=== PATIENT | female | born 1960 | race Caucasian/White ===

== ENCOUNTER 2020-11-28 13:19 | Emergency (ER) | payer OTHER ==
[2020-11-28 15:19] LABS: Absolute Lymphocytes (CBC) 2.5 K/uL (0.7-4.9); Basophils % 1.5 % (0-1.3); Hematocrit 38.9 % (36.0-45.0); Lymphocytes % 31.5 % (15.3-44.8); MPV 7.4 fL (7.6-11.3); RBC Red Blood Cell Count 4.64 M/uL (3.86-4.86)
[2020-11-28] MEDS ORDERED: ALBUTEROL 2.5 MG/3 ML NEB SOL ONE (15:28)
[2020-11-28] MEDS ORDERED: IPRATROPIUM BROM 0.5MG/2.5ML ONE (15:28)
[2020-11-28] MEDS ORDERED: METHYLPREDNISOLONE 125 MG INJ ONE (15:28)
[2020-11-28] MEDS ORDERED: MAGNESIUM SULFATE 1 gm IVPB 1 GM/100 ML BAG IV ONE (15:29)
[2020-11-28 15:36] LABS: BUN Blood Urea Nitrogen 12 mg/dL (7-18); Bicarbonate 27 mmol/L (21-32); Glucose Level 95 mg/dL (74-106); Potassium 3.7 mmol/L (3.5-5.1); Sodium Level 144 mmol/L (136-145)
--- NOTE | 2020-11-28 15:36 | RAD REPORT ---
EXAM DESCRIPTION: Arely Single View11/28/2020 3:26 pm CLINICAL HISTORY: sob COMPARISON: 2019 FINDINGS: The lungs appear clear of acute infiltrate. The heart is normal size IMPRESSION: No acute abnormalities displayed
--- NOTE | 2020-11-28 15:47 | ER ---
Nurse's Notes [facility] Name: Rosaura Cohen Age: 60 yrs Sex: Female : 1960 Arrival Date: 11/28/2020 Time: 13:28 Bed 26 Private MD: Diagnosis: Unspecified asthma with (acute) exacerbation Presentation: 11/28 13:40 Chief complaint: Patient states: Asthma exacerbation, shortness of breath x 1 month. jl7 Coronavirus screen: At this time, the client does not indicate any symptoms associated with coronavirus-19. Ebola Screen: No symptoms or risks identified at this time. Initial Sepsis Screen: Does the patient meet any 2 criteria? No. Patient's initial sepsis screen is negative. Does the patient have a suspected source of infection? No. Patient's initial sepsis screen is negative. Risk Assessment: Do you want to hurt yourself or someone else? Patient reports no desire to harm self or others. Onset of symptoms was October 2020. 13:40 Method Of Arrival: Ambulatory [facility] 13:40 Acuity: SLY 3 jl7 Triage Assessment: 13:42 General: Appears in no apparent distress. uncomfortable, Behavior is calm, cooperative, jl7 appropriate for age. Pain: Denies pain. Respiratory: Reports shortness of breath Onset: The symptoms/episode began/occurred gradually, the patient has mild shortness of breath. Historical: - Allergies: 13:42 PENICILLINS; jl7 - Home Meds: 13:42 Albuterol Inhl [Active]; levothyroxine 100 mcg cap [Active]; jl7 - PMHx: 13:42 Asthma; Hypothyroidism; jl7 - PSHx: 13:42 Total abdominal hysterectomy; jl7 - Immunization history:: Adult Immunizations up to date, Client reports receiving the 2nd dose of the Covid vaccine, Pfizer. - Social history:: Smoking status: Patient denies any tobacco usage or history of. - Family history:: not pertinent. - Code Status:: Full code. Screenin:09 Abuse screen: Denies threats or abuse. Nutritional screening: No deficits noted. kh1 Tuberculosis screening: No symptoms or risk factors identified. Fall Risk None identified. No fall in past 12 months (0 pts). No secondary diagnosis (0 pts). IV access (20 points). Gait- Normal/Bed Rest/Wheelchair (0 pts) Mental Status- Oriented to own ability (0 pts). Assessment: 14:08 General: Appears in no apparent distress. uncomfortable, Behavior is calm, cooperative, kh1 appropriate for age. Neuro: Level of Consciousness is awake, alert, obeys commands, Oriented to person, place, time, situation, Furniture Rental Consultant are equal bilaterally Moves all extremities. Gait is steady, Speech is normal. Respiratory: Airway is patent Respiratory effort is even, labored, Respiratory pattern is regular, Breath sounds with wheezes bilaterally. 14:09 Cardiovascular: Rhythm is sinus rhythm. kh1 15:45 Reassessment: Patient appears in no apparent distress at this time. No changes from [facility] previously documented assessment. Patient and/or family updated on plan of care and expected duration. Pain level reassessed. Patient is alert, oriented x 3, equal unlabored respirations, skin warm/dry/pink. Vital Signs: 13:40 BP 127 / 103; Pulse 92; Resp 19; Temp 96.8; Pulse Ox 96% ; Weight 83.01 kg; Height 5 7 ft. 5 in. (165.10 cm); Pain 0/10; 14:20 BP 106 / 61; Pulse 91 MON; Resp 20 S; Temp 98.2(TE); Pulse Ox 96% on R/A; kh1 15:46 BP 128 / 72; Pulse 79; Resp 18; Pulse Ox 100% on R/A; kh1 13:40 Body Mass Index 30.45 (83.01 kg, 165.10 cm) 7 ED Course: 13:28 Patient arrived in ED. ds1 13:38 Dinorah Hernandez [facility]C [facility] kb 13:38 Bryan Cross MD is Attending Physician. kb 13:42 Triage completed. jl7 13:42 Arm band placed on right wrist. jl7 14:07 Patt Lyons is Primary Nurse. kh1 14:09 Inserted saline lock: 20 gauge in right antecubital area, using aseptic technique. 1 Blood collected. 14:10 Patient has correct armband on for positive identification. Bed in low position. Call [facility] light in reach. Side rails up X 1. Pulse ox on. NIBP on. 15:18 Basic Metabolic Panel Sent. 1 15:19 CBC with Diff Sent. 1 15:26 Chest Single View XRAY In Process Unspecified. EDMS 15:58 No provider procedures requiring assistance completed. IV discontinued, intact, kh1 bleeding controlled, No redness/swelling at site. Pressure dressing applied. Administered Medications: 15:18 Drug: Magnesium Sulfate 1 grams Route: IVPB; Infused Over: 30 mins; Site: right kh1 antecubital; 15:18 Drug: SOLU-Medrol (methylPrednisoLONE) 125 mg Route: IVP; Site: right antecubital; kh1 15:19 Drug: DuoNeb (albuterol 2.5 mg, ipratropium 0.5 mg) (3:1) (2.5 mg - 0.5 mg) 3 ml Route: kh1 Nebulizer; Outcome: 15:46 Discharge ordered by . cr 15:58 Discharged to home ambulatory. kh1 15:58 Condition: improved 15:58 Discharge instructions given to patient, Instructed on discharge instructions, follow up and referral plans. medication usage, Demonstrated understanding of instructions, follow-up care, medications, Prescriptions given X 1. 16:15 Patient left the ED. kh1 Signatures: Dispatcher [employer] EDMS Dinorah Hernandez, BULLDOZER OPERATOR-C BULLDOZER OPERATOR-Betty Mon ds1 Lorena Fish RN RN Patt Cornejo kh1
--- NOTE | 2020-11-28 15:47 | EDPHYS ---
Physician Documentation [facility] Name: Rosaura Cohen Age: 60 yrs Sex: Female : 1960 Arrival Date: 11/28/2020 Time: 13:28 Bed 26 Private MD: ED Physician Bryan Cross HPI: 11/28 13:42 This 60 yrs old Female presents to ER via Ambulatory with complaints of kb Breathing Difficulty, Asthma Exacerbation. 13:42 The patient has shortness of breath at rest. Onset: The symptoms/episode began/occurred kb 1 month(s) ago. Duration: The symptoms are continuous. The patient's shortness of breath is aggravated by nothing, is alleviated by nothing. Associated signs and symptoms: Pertinent positives: non-productive cough, Pertinent negatives: chest pain, fever. Severity of symptoms: At their worst the symptoms were moderate in the emergency department the symptoms are unchanged. The patient has experienced similar episodes in the past. The patient has not recently seen a physician. Pt reports shortness of breath for a month. States it is getting worse and her albuterol doesn't seem to be helping anymore. Historical: - Allergies: 13:42 PENICILLINS; jl7 - Home Meds: 13:42 Albuterol Inhl [Active]; levothyroxine 100 mcg cap [Active]; jl7 - PMHx: 13:42 Asthma; Hypothyroidism; jl7 - PSHx: 13:42 Total abdominal hysterectomy; jl7 - Immunization history:: Adult Immunizations up to date, Client reports receiving the 2nd dose of the Covid vaccine, Pfizer. - Social history:: Smoking status: Patient denies any tobacco usage or history of. - Family history:: not pertinent. - Code Status:: Full code. ROS: 13:42 Constitutional: Negative for fever, chills, and weight loss. kb 13:42 Respiratory: Positive for cough, shortness of breath. 13:42 All other systems are negative. Exam: 13:42 Constitutional: This is a well developed, well nourished patient who is awake, alert, kb and in no acute distress. Head/Face: Normocephalic, atraumatic. ENT: Moist Mucous membranes Cardiovascular: Regular rate and rhythm with a normal S1 and S2. No gallops, murmurs, or rubs. No pulse deficits. Skin: Warm, dry with normal turgor. Normal color. MS/ Extremity: Pulses equal, no cyanosis. Neurovascular intact. Full, normal range of motion. Neuro: Awake and alert, GCS 15, oriented to person, place, time, and situation. Moves all extremities. Normal gait. Psych: Awake, alert, with orientation to person, place and time. Behavior, mood, and affect are within normal limits. 13:42 Respiratory: the patient does not display signs of respiratory distress, Respirations: normal, Breath sounds: wheezing: expiratory that is moderate, is heard diffusely. Vital Signs: 13:40 BP 127 / 103; Pulse 92; Resp 19; Temp 96.8; Pulse Ox 96% ; Weight 83.01 kg; Height 5 jl7 ft. 5 in. (165.10 cm); Pain 0/10; 14:20 BP 106 / 61; Pulse 91 MON; Resp 20 S; Temp 98.2(TE); Pulse Ox 96% on R/A; kh1 15:46 BP 128 / 72; Pulse 79; Resp 18; Pulse Ox 100% on R/A; kh1 13:40 Body Mass Index 30.45 (83.01 kg, 165.10 cm) jl7 MDM: 13:42 Patient medically screened. kb 13:44 Data reviewed: vital signs, nurses notes. Data interpreted: Pulse oximetry: on room air kb is 96 %. Interpretation: normal. 15:46 Counseling: I had a detailed discussion with the patient and/or guardian regarding: the kb historical points, exam findings, and any diagnostic results supporting the discharge/admit diagnosis, lab results, radiology results, the need for outpatient follow up, a family practitioner, to return to the emergency department if symptoms worsen or persist or if there are any questions or concerns that arise at home. 11/28 15:02 Order name: CBC with Diff; Complete Time: 15:26 kb 11/28 15:02 Order name: Basic Metabolic Panel; Complete Time: 15:36 kb 11/28 15:02 Order name: Chest Single View XRAY; Complete Time: 15:38 kb 11/28 15:02 Order name: IV Start; Complete Time: 15:19 kb Administered Medications: 15:18 Drug: Magnesium Sulfate 1 grams Route: IVPB; Infused Over: 30 mins; Site: right [facility] antecubital; 15:18 Drug: SOLU-Medrol (methylPrednisoLONE) 125 mg Route: IVP; Site: right antecubital; kh1 15:19 Drug: DuoNeb (albuterol 2.5 mg, ipratropium 0.5 mg) (3:1) (2.5 mg - 0.5 mg) 3 ml Route: kh1 Nebulizer; Disposition Summary: 11/28/20 15:46 Discharge Ordered Location: Home kb Condition: Stable kb Diagnosis - Unspecified asthma with (acute) exacerbation kb Followup: kb - With: Emergency Department - When: As needed - Reason: Worsening of condition Followup: kb - With: Private Physician - When: 2 - 3 days - Reason: Recheck today's complaints, Continuance of care, Re-evaluation by your physician Discharge Instructions: - Discharge Summary Sheet kb - Asthma, Adult, [id number] kb Forms: - Medication Reconciliation Form kb - Thank You Letter kb - Antibiotic Education kb - Prescription Opioid Use kb Prescriptions: - Prednisone 20 mg Oral Tablet - take 1 tablet by ORAL route once daily for 5 days; 5 tablet; Refills: 0, kb Product Selection Permitted Addendum: 11/30/2020 11:01 Co-signature as Attending Physician, Bryan Cross MD I agree with the assessment and c duckworth plan of care. Signatures: Dispatcher [employer] Dinorah Mike, KARIN-C SLOT TECHNICIAN-Bryan May MD MD cha Leal, Jahala, RN RN hope7 Eloy, Patt [facility]
[2020-11-28 16:31] VITALS: TEMP 98.2
[2020-11-28 16:32] VITALS: BP 128/72; O2SAT 100
== END 2020-11-28 16:15 | disposition home or self-care (01) ==
LOC: ER 13:19
DX: J45.901 Unspecified asthma with (acute) exacerbation (principal); E03.9 Hypothyroidism, unspecified; Z88.0 Allergy status to penicillin
CPT/HCPCS: 85025; 80048; 36415; 71045; 96375; 96374; 99285; J3475; J2930

== ENCOUNTER 2021-01-18 13:39 | Emergency (ER) | payer OTHER ==
--- OUTSIDE RECORDS SUMMARY | 2021-01-18 13:42 | XMS REPORT | Continuity of Care Document ---
:1960 Author Organization [facility] t Address [address] [place] [address] Care Team Providers Name Role Phone Unavailable Unavailable Unavailable Problems This patient has no known problems. Allergies, Adverse Reactions, Alerts Allergy Allergy Status Severity Reaction(s) Onset Inactive Treating Comm ents Source Name Type Date Date Clinician PCN Adverse Active rash [facility] Medications Ordered Filled Start Stop Current Ordering Indication Dosage Frequency Signature Comments Components Source Medication Medication Date Date Medication? Clinician (SIG) Name Name Levothyroxi Levothyroxi Yes Nery [address] [facility] ne Sodium ne Sodium [place] in the - morning on [facility] empty l stomach [facility]pat[facility] ent Clinics Procedures This patient has no known procedures. Encounters Start End Encounter Admission Attending Care Care Encounter Source Date/Time Date/Time Type Type Clinicians Facility Department ID 2020-12-28 2020-12-28 Outpatient [facility] [id number] [facility] 2020-12-27 2020-12-27 [facility] [id number] 2020-12-21 2020-12-21 Outpatient [facility] [id number] [facility] 2020-12-12 2020-12-12 Outpatient [facility] [id number] [facility] 2020-08-16 2020-08-16 [facility] [id number] [facility] 2020-08-11 2020-08-11 Out[facility] [id number] [facility] 2020-07-11 2020-07-11 Outpatient [facility] [id number] [facility] 2020-06-28 2020-06-28 [facility] [id number] [facility] 2020-03-30 2020-03-30 Outpatient [facility] [id number] [facility] 2019-12-29 2019-12-29 Out[facility] [id number] [facility] 2019-11-18 2019-11-18 [facility] [id number] 13[facility]13:00 13:13:00 [facility] Medicine Outpat[facility] Clinics 2019-11-12 2019-11-12 [facility] [id number] [facility] 18[facility]17:00 18:17:00 [facility] Medicine l Medicine Outpati ent Clinics 2019-09-28 2019-09-28 [facility] [id number] 11:40:00 11:40:00 [facility] Medicine l Medicine Outpat[facility] ent Clinics 2019-09-27 2019-09-27 [facility] [id number] 12:08:00 12:08:00 [facility] Medicine l Medicine Outpati ent Clinics 2019-03-15 2019-03-15 [facility] [id number] 14:23:00 14:23:00 [facility] 2019-03-12 2019-03-12 Outpatient [facility] Marie G[facility] [id number] 10:00:00 10:00:00 [facility] 2019-01-12 2019-01-12 Outpatient Anna Marie Gao [id number] [facility] 15:20:00 15:20:00 [facility] Results This patient has no known results.
[2021-01-18] MEDS ORDERED: CYCLOBENZAPRINE 10 MG TAB ONE (15:22)
[2021-01-18] MEDS ORDERED: IBUPROFEN 400 MG TAB ONE (15:22)
--- NOTE | 2021-01-18 15:50 | RAD REPORT ---
EXAM DESCRIPTION: RAD - Tib Fib Left - 01/18/2021 3:31 pm CLINICAL HISTORY: PAIN COMPARISON: No comparisons FINDINGS: No acute fracture. No malalignment. No significant focal degenerative changes. IMPRESSION: No acute osseous abnormality involving the tibia or fibula.
--- NOTE | 2021-01-18 16:35 | RAD REPORT ---
EXAM DESCRIPTION: US - Extremity Venous Uni Ltd - 01/18/2021 3:59 pm CLINICAL HISTORY: Pain COMPARISON: None. TECHNIQUE: Real-time sonographic evaluation of the left lower extremity deep venous system was perfo rmed. FINDINGS: Normal compressibility, flow augmentation, phasic flow and spontaneous flow is identified in the left lower extremity deep venous system. No intraluminal filling defects seen. IMPRESSION: No DVT in the left lower extremity.
--- NOTE | 2021-01-18 16:43 | ER ---
Nurse's Notes [facility] Name: Rosaura Cohen Age: 60 yrs Sex: Female : 1960 Arrival Date: 01/18/2021 Time: 13:41 Bed 10 Private MD: Nery Velasquez Diagnosis: Pain in left lower leg Presentation: 01/18 14:20 Chief complaint: Patient states: cramping pain that began in L calf 3 days ago that ss radiates up towards buttock/ hip area. Pt reports that pain is relieved with hot water soaks. Coronavirus screen: Client denies travel out of the [place] in the last 14 days. Ebola Screen: Patient denies exposure to infectious person. Patient denies travel to an Ebola-affected area in the 21 days before illness onset. Initial Sepsis Screen: Does the patient meet any 2 criteria? No. Patient's initial sepsis screen is negative. Does the patient have a suspected source of infection? No. Patient's initial sepsis screen is negative. Risk Assessment: Do you want to hurt yourself or someone else? Patient reports no desire to harm self or others. Onset of symptoms was January 15, 2021. 14:20 Method Of Arrival: Ambulatory ss 14:20 Acuity: SLY 3 ss Historical: - Allergies: 14:22 PENICILLINS; ss - Home Meds: 14:22 levothyroxine 100 mcg cap [Active]; Tessalon Perles 100 mg Oral cap [Active]; ss - PMHx: 14:22 Asthma; Hypothyroidism; ss - PSHx: 14:22 Total abdominal hysterectomy; ss - Immunization history:: Client reports receiving the 2nd dose of the Covid vaccine. - Social history:: Smoking status: Patient denies any tobacco usage or history of. Screenin:22 Abuse screen: Denies threats or abuse. Denies injuries from another. Nutritional ss screening: No deficits noted. Tuberculosis screening: Never had TB. Fall Risk None identified. Assessment: 15:27 Reassessment: Patient appears in no apparent distress at this time. US at bedside at tw2 this time. 16:09 Reassessment: Patient appears in no apparent distress at this time. Patient and/or tw2 family updated on plan of care and expected duration. Pain level reassessed. Patient is alert, oriented x 3, equal unlabored respirations, skin warm/dry/pink. pt states "its just like a cramp that wont let go" Patient states symptoms have not improved. 16:48 Reassessment: Patient appears in no apparent distress at this time. Patient and/or tw2 family updated on plan of care and expected duration. Pain level reassessed. Patient is alert, oriented x 3, equal unlabored respirations, skin warm/dry/pink. Vital Signs: 14:20 BP 109 / 75; Pulse 85; Resp 16; Temp 97.5(TE); Pulse Ox 98% on R/A; Weight 82.55 kg; ss Height 5 ft. 5 in. (165.10 cm); Pain 10/10; 16:09 BP 125 / 76; Pulse 68; Resp 17; Pulse Ox 98% on R/A; Pain 10/10; tw2 14:20 Body Mass Index 30.29 (82.55 kg, 165.10 cm) ED Course: 13:41 Patient arrived in ED. ap4 13:43 Nery Velasquez is Private Physician. ap4 14:22 Triage completed. ss 14:22 Arm band placed on right wrist. ss 14:23 Bed in low position. Call light in reach. Adult w/ patient. Pulse ox on. NIBP on. tw2 14:26 Pavithra Padilla, PAULINE is Primary Nurse. tw2 15:09 Bryan Carroll PA is PHCP. cp 15:09 Hal Alamo MD is Attending Physician. cp 15:31 XRAY Tib Fib LEFT In Process Unspecified. EDMS 15:59 US Extremity Venous Unilateral Ltd In Process Unspecified. EDMS 16:48 No provider procedures requiring assistance completed. Patient did not have IV access tw2 during this emergency room visit. Administered Medications: 15:27 Drug: Ibuprofen 800 mg Route: PO; tw2 16:09 Follow up: Response: No adverse reaction; Pain is unchanged, physician notified tw2 15:27 Drug: Flexeril (cyclobenzaprine) 10 mg Route: PO; tw2 16:08 Follow up: Response: No adverse reaction; Pain is unchanged, physician notified tw2 Outcome: 16:42 Discharge ordered by MD. cp 16:48 Discharged to home ambulatory, with significant other. tw2 16:48 Condition: stable 16:48 Discharge instructions given to patient, significant other, Instructed on discharge instructions, follow up and referral plans. medication usage, CMS checks with justina wraps Demonstrated understanding of instructions, follow-up care, medications, CMS checks with justina wraps Prescriptions given X 2. 16:49 Patient left the ED. tw2 Signatures: Dispatcher [employer] Muriel Jane RN RN Bryan Carroll PA PA cp Wise, Tara, RN RN tw2 Argenis Ernandez ap4 Corrections: (The following items were deleted from the chart) 16:09 16:09 Reassessment: Patient appears in no apparent distress at this time. Patient tw2 and/or family updated on plan of care and expected duration. Pain level reassessed. Patient is alert, oriented x 3, equal unlabored respirations, skin warm/dry/pink. Patient states symptoms have not improved. tw2
--- NOTE | 2021-01-18 16:43 | EDPHYS ---
Physician Documentation [facility] Name: Rosaura Cohen Age: 60 yrs Sex: Female : 1960 Arrival Date: 01/18/2021 Time: 13:41 Bed 10 Private MD: Nery Velasquez ED Physician Hal Alamo HPI: 01/18 15:50 This 60 yrs old Female presents to ER via Ambulatory with complaints of Leg Pain, PAIN cp IN THE LEFT LEG GOING UP. 15:50 The patient presents with pain, that is acute. The complaints affect the lateral aspect cp of left calf and left calf. Context: resulted from an unknown cause, the patient can fully bear weight, the patient is able to ambulate, without difficulty. Onset: The symptoms/episode began/occurred 3 day(s) ago. Modifying factors: the symptoms are aggravated by weight bearing. 15:50 Associated signs and symptoms: Pertinent positives: calf tenderness, Pertinent cp negatives fever, numbness, rash, swelling, warmth, weakness, shortness of breath. Historical: - Allergies: 14:22 PENICILLINS; ss - Home Meds: 14:22 levothyroxine 100 mcg cap [Active]; Tessalon Perles 100 mg Oral cap [Active]; ss - PMHx: 14:22 Asthma; Hypothyroidism; ss - PSHx: 14:22 Total abdominal hysterectomy; ss - Immunization history:: Client reports receiving the 2nd dose of the Covid vaccine. - Social history:: Smoking status: Patient denies any tobacco usage or history of. ROS: 15:55 MS/extremity: Positive for pain, tenderness, of the left calf and lateral aspect of cp left calf, Negative for injury or acute deformity, decreased range of motion, paresthesias. 15:55 Constitutional: Negative for body aches, chills, fever. cp 15:55 Cardiovascular: Negative for chest pain, palpitations. cp 15:55 Respiratory: Negative for cough, shortness of breath, wheezing. 15:55 Abdomen/GI: Negative for abdominal pain, nausea, vomiting, and diarrhea. 15:55 Skin: Negative for cellulitis, rash. cp 15:55 Neuro: Negative for weakness. 15:55 All other systems are negative. Exam: 16:00 Constitutional: The patient appears in no acute distress, alert, awake, comfortable, cp well developed, well nourished. 16:00 Head/Face: Normocephalic, atraumatic. cp 16:00 Cardiovascular: Rate: normal, Pulses: Pulses are 2+ in left dorsalis pedis artery. Edema: is not appreciated. 16:00 Respiratory: the patient does not display signs of respiratory distress, Respirations: normal, no use of accessory muscles, no retractions, labored breathing, is not present. 16:00 Back: pain, is absent, ROM is normal. 16:00 Musculoskeletal/extremity: Extremities: grossly normal except: noted in the left calf and lateral aspect of left calf: pain, tenderness, There is no evidence of erythema, swelling, ROM: full active range of motion, left knee and left ankle. 16:00 Skin: cellulitis, is not appreciated, no rash present. Vital Signs: 14:20 BP 109 / 75; Pulse 85; Resp 16; Temp 97.5(TE); Pulse Ox 98% on R/A; Weight 82.55 kg; ss Height 5 ft. 5 in. (165.10 cm); Pain 10/10; 16:09 BP 125 / 76; Pulse 68; Resp 17; Pulse Ox 98% on R/A; Pain 10/10; tw2 14:20 Body Mass Index 30.29 (82.55 kg, 165.10 cm) ss MDM: 15:14 Patient medically screened. cp 16:00 Differential diagnosis: strain, cellulitis, DVT. cp 16:42 Data reviewed: vital signs, nurses notes, radiologic studies, plain films, ultrasound. cp 16:42 Test interpretation: by ED physician or midlevel provider: plain radiologic studies. cp Counseling: I had a detailed discussion with the patient and/or guardian regarding: the historical points, exam findings, and any diagnostic results supporting the discharge/admit diagnosis, radiology results, the need for outpatient follow up, a family practitioner, to return to the emergency department if symptoms worsen or persist or if there are any questions or concerns that arise at home. 01/18 15:15 Order name: XRAY Tib Fib LEFT; Complete Time: 16:35 cp 01/18 16:35 Interpretation: Report reviewed. 01/18 15:15 Order name: US Extremity Venous Unilateral Ltd; Complete Time: 16:38 cp 01/18 16:38 Interpretation: Report reviewed. 01/18 16:42 Order name: Yariel Wrap; Complete Time: 16:48 tw2 Administered Medications: 15:27 Drug: Ibuprofen 800 mg Route: PO; tw2 16:09 Follow up: Response: No adverse reaction; Pain is unchanged, physician notified tw2 15:27 Drug: Flexeril (cyclobenzaprine) 10 mg Route: PO; tw2 16:08 Follow up: Response: No adverse reaction; Pain is unchanged, physician notified tw2 Disposition: 16:50 Chart complete. cp 17:26 Co-signature as Attending Physician, Hal Alamo MD I agree with the assessment and kdr plan of care. Disposition Summary: 01/18/21 16:42 Discharge Ordered Location: Home cp Problem: new cp Symptoms: have improved cp Condition: Stable cp Diagnosis - Pain in left lower leg cp Followup: cp - With: Private Physician - When: 5 - 6 days - Reason: pain continues Discharge Instructions: - Discharge Summary Sheet cp - Musculoskeletal Pain cp - How to Use Cold Therapy cp - Heat Therapy cp Forms: - Medication Reconciliation Form cp - Thank You Letter cp - Antibiotic Education cp - Prescription Opioid Use cp Prescriptions: - Naprosyn 500 mg Oral Tablet - take 1 tablet by ORAL route 2 times per day take with food; 20 tablet; Refills: cp 0, Product Selection Permitted - Cyclobenzaprine 10 mg Oral Tablet - take 1 tablet by ORAL route every 8 hours As needed; 20 tablet; Refills: 0, cp Product Selection Permitted Signatures: Dispatcher [employer] [facility] Hal Alamo MD MD [facility] Muriel Moreno RN RN Bryan Meadows PA PA cp Pavithra Padilla RN RN tw2 Corrections: (The following items were deleted from the chart) 16:48 16:42 Yariel wrap-joint ordered. cp tw2
[2021-01-18 16:59] VITALS: TEMP 97.5; O2SAT 98
[2021-01-18 17:01] VITALS: BP 125/76
== END 2021-01-18 16:49 | disposition home or self-care (01) ==
LOC: ER 13:39
DX: M79.662 Pain in left lower leg (principal); E03.9 Hypothyroidism, unspecified; Z88.0 Allergy status to penicillin
CPT/HCPCS: 93971; 99284

== ENCOUNTER 2022-09-05 19:19 | Emergency (ER) | payer OTHER ==
--- OUTSIDE RECORDS SUMMARY | 2022-09-05 19:22 | XMS REPORT | Continuity of Care Document ---
:1960 Author Organization [facility] t Address [address] [place] [address] Care Team Providers Name Role Phone Nery Velasquez Attending Clinician Unavailable Payers Payer Name Policy Type Policy Number Effective Date Expiration Date S shanda Ambetter from [id number] Common [facility] Ambetter from [id number] Common [facility] Ambetter from [id number] Common [facility]pi [facility] Ambetter from [id number] Common [facility] rit [facility] Problems Condition Condition Condition Status Onset Resolution Last Treating Co mments Source Name Details Category Date Date Treatment Clinician Date [id number] BMI Problem Common 31.0-31.9, Spirit adult - [facility] [id number] Primary Problem Common hypertensi Spirit on - [facility] [id number] Migraine Problem Comm on without Spirit aura and - [facility] migrainosu Medica l s, not Center intractabl e [id number] Hypothyroi Problem Com mon dism, Spirit unspecifie - [facility] d type [facility] [id number] Mild Problem Common intermitte Spirit nt asthma - [facility] without St complicati [facility] [id number] Seasonal Problem Comm on allergies [facility] Allergies, Adverse Reactions, Alerts This patient has no known allergies or adverse reactions. Social History Social Habit Start Date Stop Date Quantity Comments Source History of Tobacco Use Co mmon [facility] Sex Assigned At Com mon [facility] Smoking Status Start Date Stop Date Source Never Smoker Common [facility] Medications Ordered Filled Start Stop Current Ordering Indication Dosage Frequency Signature Comments Components Source Medication Medication Date Date Medication? Clinician (SIG) Name Name Toradol Toradol No 60mg Common (Ketorolac) (Ketorolac) 1-30 S pirit 00:00: - [facility] 00 [facility] Butalbital- Butalbital- 2022- No 1{capsu QID Butalbital ASA-Caffein ASA-Caffein 30 - le_as_n -ASA-Caffe e 50-325-40 e 50-325-40 00:00: 00:00 eeded} ine MG MG 00 :00 50-325-40 MG Rizatriptan Rizatriptan No 1{table QD Rizatripta Benzoate 10 Benzoate 10 1-10 t} n Benzoate MG MG 00:00: 10 MG 00 Budesonide- Budesonide- No 2{puffs BID Budesonide Formoterol Formoterol 12 } -Formotero Fumarate Fumarate 00:00: l Fumarate 160-4.5 160-4.5 00 160-4.5 MCG/ACT MCG/ACT MCG/ACT Budesonide- Budesonide- 2022- No 2{puffs BID Budesonide Formoterol Formoterol 06-12 } -Formotero Fumarate Fumarate 00:00: 00:00 l Fumarate 160-4.5 160-4.5 00 :00 160-4.5 MCG/ACT MCG/ACT MCG/ACT Budesonide- Budesonide- 2022- No 2{puffs BID Budesonide Formoterol Formoterol 06-12 } -Formotero Fumarate Fumarate 00:00: 00:00 l Fumarate 160-4.5 160-4.5 00 :00 160-4.5 MCG/ACT MCG/ACT MCG/ACT Budesonide- Budesonide- 2022- No 2{puffs BID Budesonide Formoterol Formoterol -12 03-18 } -Formotero Fumarate Fumarate 00:00: 00:00 l Fumarate 160-4.5 160-4.5 00 :00 160-4.5 MCG/ACT MCG/ACT MCG/ACT Breo Breo 2020-03- No 1{puff} QD Breo Ellipta Ellipta 0-28 02-25 Ellipta 100-25 100-25 00:00: 00:00 100-25 MCG/INH MCG/INH 00 :00 MCG/INH Breo Breo 2020-03- No 1{puff} QD Breo Ellipta Ellipta 0-28 02-25 Ellipta 100-25 100-25 00:00: 00:00 100-25 MCG/INH MCG/INH 00 :00 MCG/INH Breo Breo 2020-03- No 1{puff} QD Breo Ellipta Ellipta 0-28 02-25 Ellipta 100-25 100-25 00:00: 00:00 100-25 MCG/INH MCG/INH 00 :00 MCG/INH Benzonatate Benzonatate 2020-03- No 1{capsu TID Benzonatat 100 MG 100 MG 0-28 11-17 le_as_n e 100 MG 00:00: 00:00 eeded} 00 :00 Benzonatate Benzonatate 2020-03- No 1{capsu TID Benzonatat 100 MG 100 MG 0-28 11-17 le_as_n e 100 MG 00:00: 00:00 eeded} 00 :00 Medrol 4 MG Medrol 4 MG 2020-03- No Medrol 4 0-28 11-04 MG 00:00: 00:00 00 :00 Medrol 4 MG Medrol 4 MG 2020-03- No Medrol 4 0-28 11-04 MG 00:00: 00:00 00 :00 Sulfamethox Sulfamethox 2020-03- No 1{table BID Sulfametho azole-Trime azole-Trime 0-12 -17 t} xazole-Tri thoprim thoprim 00:00: 00:00 methoprim 800-160 MG 800-160 MG 00 :00 800-160 MG Kenalog Kenalog 2020-0 No 40mg Common (Triamcinol (Triamcinol 7-28 S pirit one) one) 00:00: - [facility] 00 [facility] Dexamethaso Dexamethaso 2020-0 No 4mg Common ne ne 7-28 Spirit 00:00: - [facility] 00 [facility] Kenalog Kenalog 2020-0 No 40mg Common (Triamcinol (Triamcinol 7-28 S pirit one) one) 00:00: - [facility] 00 [facility] Dexamethaso Dexamethaso 2020-0 No 4mg Common ne ne 7-28 Spirit 00:00: - [facility] 00 [facility] Kenalog Kenalog 2020-0 No 40mg Common (Triamcinol (Triamcinol 7-28 S pirit one) one) 00:00: - [facility] 00 [facility] Dexamethaso Dexamethaso 2020-0 No 4mg Common ne ne 7-28 Spirit 00:00: - [facility] 00 [facility] Kenalog Kenalog 2020-0 No 40mg Common (Triamcinol (Triamcinol 7-28 S pirit one) one) 00:00: - [facility] 00 [facility] Dexamethaso Dexamethaso 2020-0 No 4mg Common ne ne 7-28 Spirit 00:00: - [facility] 00 [facility] Kenalog Kenalog 2020-0 No 40mg Common (Triamcinol (Triamcinol 7-28 S pirit one) one) 00:00: - [facility] 00 [facility] Dexamethaso Dexamethaso 2020-0 No 4mg Common ne ne 7-28 Spirit 00:00: - [facility] 00 [facility] Levothyroxi Levothyroxi Yes Nery 1 tablet Common ne Sodium ne Sodium [place] in the Sp rd morning on - [facility] an empty [facility] Albuterol Albuterol No Albuterol Sulfate HFA Sulfate HFA Sulfate 108 (90 108 (90 HFA 108 Base) Base) (90 Base) MCG/ACT MCG/ACT MCG/ACT Levothyroxi Levothyroxi No QD Levothyrox ne Sodium ne Sodium ine Sodium 100 MCG 100 MCG 100 MCG Levothyroxi Levothyroxi No QD Levothyrox ne Sodium ne Sodium ine Sodium 100 MCG 100 MCG 100 MCG Albuterol Albuterol No Albuterol Sulfate HFA Sulfate HFA Sulfate 108 (90 108 (90 HFA 108 Base) Base) (90 Base) MCG/ACT MCG/ACT MCG/ACT Levothyroxi Levothyroxi No Levothyrox ne Sodium ne Sodium ine Sodium 100 MCG 100 MCG 100 MCG Albuterol Albuterol No 6xD Albuterol Sulfate HFA Sulfate HFA Sulfate 108 (90 108 (90 HFA 108 Base) Base) (90 Base) MCG/ACT MCG/ACT MCG/ACT Albuterol Albuterol No 6xD Albuterol Sulfate HFA Sulfate HFA Sulfate 108 (90 108 (90 HFA 108 Base) Base) (90 Base) MCG/ACT MCG/ACT MCG/ACT Levothyroxi Levothyroxi No Levothyrox ne Sodium ne Sodium ine Sodium 100 MCG 100 MCG 100 MCG Albuterol Albuterol No 6xD Albuterol Sulfate HFA Sulfate HFA Sulfate 108 (90 108 (90 HFA 108 Base) Base) (90 Base) MCG/ACT MCG/ACT MCG/ACT Levothyroxi Levothyroxi No Levothyrox ne Sodium ne Sodium ine Sodium 100 MCG 100 MCG 100 MCG Albuterol Albuterol No 6xD Albuterol Sulfate HFA Sulfate HFA Sulfate 108 (90 108 (90 HFA 108 Base) Base) (90 Base) MCG/ACT MCG/ACT MCG/ACT Lisinopril Lisinopril No 1{table QD Lisinopril 20 MG 20 MG t} 20 MG Levothyroxi Levothyroxi No Levothyrox ne Sodium ne Sodium ine Sodium 100 MCG 100 MCG 100 MCG Budesonide- Budesonide- No Budesonide Formoterol Formoterol -Formotero Fumarate Fumarate l Fumarate 160-4.5 160-4.5 160-4.5 MCG/ACT MCG/ACT MCG/ACT Levothyroxi Levothyroxi No QD Levothyrox ne Sodium ne Sodium ine Sodium 100 MCG 100 MCG 100 MCG Ventolin Ventolin No 1{puff_ 6xD Ventolin HFA 108 (90 HFA 108 (90 as_need HFA 108 Base) Base) ed} (90 Base) MCG/ACT MCG/ACT MCG/ACT Phentermine Phentermine No 1{capsu QD Phentermin HCl 37.5 MG HCl 37.5 MG le} e HCl 37.5 MG Phentermine Phentermine No 1{capsu QD Phentermin HCl 37.5 MG HCl 37.5 MG le} e HCl 37.5 MG Levothyroxi Levothyroxi No QD Levothyrox ne Sodium ne Sodium ine Sodium 100 MCG 100 MCG 100 MCG Ventolin Ventolin No 1{puff_ 6xD Ventolin HFA 108 (90 HFA 108 (90 as_need HFA 108 Base) Base) ed} (90 Base) MCG/ACT MCG/ACT MCG/ACT Phentermine Phentermine No 1{capsu QD Phentermin HCl 37.5 MG HCl 37.5 MG le} e HCl 37.5 MG Levothyroxi Levothyroxi No QD Levothyrox ne Sodium ne Sodium ine Sodium 100 MCG 100 MCG 100 MCG Ventolin Ventolin No 1{puff_ 6xD Ventolin HFA 108 (90 HFA 108 (90 as_need HFA 108 Base) Base) ed} (90 Base) MCG/ACT MCG/ACT MCG/ACT Ventolin Ventolin No 1{puff_ 6xD Ventolin HFA 108 (90 HFA 108 (90 as_need HFA 108 Base) Base) ed} (90 Base) MCG/ACT MCG/ACT MCG/ACT Levothyroxi Levothyroxi No QD Levothyrox ne Sodium ne Sodium ine Sodium 100 MCG 100 MCG 100 MCG Immunizations Ordered Immunization Filled Immunization Date Status Commen ts Source Name Name Pfizer COVID-19 Pfizer COVID-19 2020-06-22 Completed Comm on Spirit Vaccine Vaccine 13:16:00 - [facility] Pfizer COVID-19 Pfizer COVID-19 2020-06-22 Completed Comm on Spirit Vaccine Vaccine 13:16:00 - [facility] Pfizer COVID-19 Pfizer COVID-19 2020-06-22 Completed Comm on Spirit Vaccine Vaccine 13:16:00 - [facility] Pfizer COVID-19 Pfizer COVID-19 2020-06-22 Completed Comm on Spirit Vaccine Vaccine 13:16:00 - [facility] Pfizer COVID-19 Pfizer COVID-19 2020-06-22 Completed Comm on Spirit Vaccine Vaccine 13:16:00 - [facility] Pfizer COVID-19 Pfizer COVID-19 2020-06-22 Completed Comm on Spirit Vaccine Vaccine 13:16:00 - [facility] Pfizer COVID-19 Pfizer COVID-19 2020-06-22 Completed Comm on Spirit Vaccine Vaccine 13:16:00 - [facility] Pfizer COVID-19 Pfizer COVID-19 2020-06-22 Completed Comm on Spirit Vaccine Vaccine 13:16:00 - [facility] Pfizer COVID-19 Pfizer COVID-19 2020-06-22 Completed Comm on Spirit Vaccine Vaccine 13:16:00 - [facility] Pfizer COVID-19 Pfizer COVID-19 2020-06-22 Completed Comm on Spirit Vaccine Vaccine 13:16:00 - [facility] Pfizer COVID-19 Pfizer COVID-19 2020-06-01 Completed Comm on Spirit Vaccine Vaccine 13:15:00 - [facility] Pfizer COVID-19 Pfizer COVID-19 2020-06-01 Completed Comm on Spirit Vaccine Vaccine 13:15:00 - [facility] Pfizer COVID-19 Pfizer COVID-19 2020-06-01 Completed Comm on Spirit Vaccine Vaccine 13:15:00 - [facility] Pfizer COVID-19 Pfizer COVID-19 2020-06-01 Completed Comm on Spirit Vaccine Vaccine 13:15:00 - [facility] Pfizer COVID-19 Pfizer COVID-19 2020-06-01 Completed Comm on Spirit Vaccine Vaccine 13:15:00 - [facility] Pfizer COVID-19 Pfizer COVID-19 2020-06-01 Completed Comm on Spirit Vaccine Vaccine 13:15:00 [facility] Pfizer COVID-19 Pfizer COVID-19 2020-06-01 Completed Comm on Spirit Vaccine Vaccine 13:15:00 - [facility] Pfizer COVID-19 Pfizer COVID-19 2020-06-01 Completed Comm on Spirit Vaccine Vaccine 13:15:00 [facility] Pfizer COVID-19 Pfizer COVID-19 2020-06-01 Completed Comm on Spirit Vaccine Vaccine 13:15:00 [facility] Pfizer COVID-19 Pfizer COVID-19 2020-06-01 Completed Comm on Spirit Vaccine Vaccine 13:15:00 [facility] Flucelvax - single Flucelvax - single 2019-12-29 Completed Common Spirit dose syringe dose syringe 14:21:00 - [facility] Flucelvax - single Flucelvax - single 2019-12-29 Completed Common Spirit dose syringe dose syringe 14:21:00 - [facility] Flucelvax - single Flucelvax - single 2019-12-29 Completed Common Spirit dose syringe dose syringe 14:21:00 - [facility] Flucelvax - single Flucelvax - single 2019-12-29 Completed Common Spirit dose syringe dose syringe 14:21:00 - [facility] Flucelvax - single Flucelvax - single 2019-12-29 Completed Common Spirit dose syringe dose syringe 14:21:00 - [facility] Flucelvax - single Flucelvax - single 2019-12-29 Completed Common Spirit dose syringe dose syringe 14:21:00 - [facility] Flucelvax - single Flucelvax - single 2019-12-29 Completed Common Spirit dose syringe dose syringe 14:21:00 - [facility] Flucelvax - single Flucelvax - single 2019-12-29 Completed Common Spirit dose syringe dose syringe 14:21:00 - [facility] Flucelvax - single Flucelvax - single 2019-12-29 Completed Common Spirit dose syringe dose syringe 14:21:00 - [facility] Flucelvax - single Flucelvax - single 2019-12-29 Completed Common Spirit dose syringe dose syringe 14:21:00 - [facility] Kenalog Kenalog 2019-09-28 Completed Common [facility] (Triamcinolone) (Triamcinolone) 12:17:00 - [facility] Kenalog Kenalog 2019-09-28 Completed Common [facility] (Triamcinolone) (Triamcinolone) 12:17:00 - [facility] 2019-09-28 Completed Common [facility] (Triamcinolone) (Triamcinolone) 12:17:00 - [facility] Kenalog Kenalog 2019-09-28 Completed Common [facility] (Triamcinolone) (Triamcinolone) 12:17:00 - [facility] Dexamethasone Dexamethasone 2019-09-28 Completed Common S pirit 12:16:00 - [facility] Dexamethasone Dexamethasone 2019-09-28 Completed Common S pirit 12:16:00 - [facility] Dexamethasone Dexamethasone 2019-09-28 Completed Common S pirit 12:16:00 - [facility] Dexamethasone Dexamethasone 2019-09-28 Completed Common S pirit 12:16:00 - [facility] Flucelvax - multidose Flucelvax - 2018-02-10 Completed Co mmon Spirit vial multidose vial 15:23:00 - [facility] Flucelvax - multidose Flucelvax - 2018-02-10 Completed Co mmon Spirit vial multidose vial 15:23:00 - [facility] Flucelvax - multidose Flucelvax - 2018-02-10 Completed Co mmon Spirit vial multidose vial 15:23:00 - [facility] Flucelvax - multidose Flucelvax - 2018-02-10 Completed Co mmon Spirit vial multidose vial 15:23:00 - [facility] Flucelvax - multidose Flucelvax - 2018-02-10 Completed Co mmon Spirit vial multidose vial 15:23:00 - [facility] Flucelvax - multidose Flucelvax - 2018-02-10 Completed Co mmon Spirit vial multidose vial 15:23:00 - [facility] Flucelvax - multidose Flucelvax - 2018-02-10 Completed Co mmon Spirit vial multidose vial 15:23:00 - [facility] Flucelvax - multidose Flucelvax - 2018-02-10 Completed Co mmon Spirit vial multidose vial 15:23:00 - [facility] Flucelvax - multidose Flucelvax - 2018-02-10 Completed Co mmon Spirit vial multidose vial 15:23:00 - [facility] Flucelvax - multidose Flucelvax - 2018-02-10 Completed Co mmon Spirit vial multidose vial 15:23:00 - [facility] Prevnar 13 (PCV13) Prevnar 13 (PCV13) 2018-01-10 Completed Common [facility] 15:23:00 - [facility] Prevnar 13 (PCV13) Prevnar 13 (PCV13) 2018-01-10 Completed Common [facility] 15:23:00 - [facility] Prevnar 13 (PCV13) Prevnar 13 (PCV13) 2018-01-10 Completed Common [facility] 15:23:00 [facility] Prevnar 13 (PCV13) Prevnar 13 (PCV13) 2018-01-10 Completed Common [facility] 15:23:00 [facility] Prevnar 13 (PCV13) Prevnar 13 (PCV13) 2018-01-10 Completed Common [facility] 15:23:00 [facility] Prevnar 13 (PCV13) Prevnar 13 (PCV13) 2018-01-10 Completed Common [facility] 15:23:00 - [facility] Prevnar 13 (PCV13) Prevnar 13 (PCV13) 2018-01-10 Completed Common [facility] 15:23:00 - [facility] Prevnar 13 (PCV13) Prevnar 13 (PCV13) 2018-01-10 Completed Common [facility] 15:23:00 [facility] Prevnar 13 (PCV13) Prevnar 13 (PCV13) 2018-01-10 Completed Common [facility] 15:23:00 [facility] Prevnar 13 (PCV13) Prevnar 13 (PCV13) 2018-01-10 Completed [facility] 15:23:00 [facility] Vital Signs Vital Name Observation Time Observation Value Comments Source height 2022-04-01 15:00:00 64 [in_i] [facility] weight 2022-04-01 15:00:00 196 [lb_av] [facility] temperature 2022-04-01 15:00:00 97.8 [degF] [facility] bmi 2022-04-01 15:00:00 33.64 kg/m2 [facility] oximetry 2022-04-01 15:00:00 95 % [facility] respiratory rate 2022-04-01 15:00:00 17 /min Comm on [facility] blood pressure 2022-04-01 15:00:00 140 mm[Hg] Common [facility] - systolic [facility] blood pressure 2022-04-01 15:00:00 72 mm[Hg] Common [facility] - diastolic [facility] height 2021-11-09 08:20:00 64 [in_i] Common S [facility] weight 2021-11-09 08:20:00 186 [lb_av] [facility] temperature 2021-11-09 08:20:00 97.3 [degF] Common S [facility] bmi 2021-11-09 08:20:00 31.92 kg/m2 [facility] oximetry 2021-11-09 08:20:00 99 % Common [facility] respiratory rate 2021-11-09 08:20:00 16 /min Comm on [facility] blood pressure 2021-11-09 08:20:00 123 mm[Hg] Common [facility] - systolic [facility] blood pressure 2021-11-09 08:20:00 74 mm[Hg] Common [facility] - diastolic [facility] height 2021-10-10 11:20:00 64 [in_i] Common [facility] weight 2021-10-10 11:20:00 186 [lb_av] Common [facility] temperature 2021-10-10 11:20:00 97.2 [degF] [facility] bmi 2021-10-10 11:20:00 31.92 kg/m2 Common [facility] oximetry 2021-10-10 11:20:00 98 % Common S [facility] respiratory rate 2021-10-10 11:20:00 18 /min Comm on [facility] blood pressure 2021-10-10 11:20:00 103 mm[Hg] Common [facility] - systolic [facility] blood pressure 2021-10-10 11:20:00 63 mm[Hg] Common [facility] - diastolic [facility] height 2021-09-19 13:20:00 64 [in_i] Common S pirit - [facility] weight 2021-09-19 13:20:00 185 [lb_av] Common S pirit [facility] temperature 2021-09-19 13:20:00 97.2 [degF] Common S pirit - [facility] bmi 2021-09-19 13:20:00 31.75 kg/m2 Common S pirit [facility] oximetry 2021-09-19 13:20:00 96 % Common S pirit [facility] respiratory rate 2021-09-19 13:20:00 16 /min Comm on [facility] blood pressure 2021-09-19 13:20:00 137 mm[Hg] Common [facility] - systolic [facility] blood pressure 2021-09-19 13:20:00 63 mm[Hg] Common [facility] - diastolic [facility] height 2021-02-14 10:00:00 64 [in_i] Common S pirit [facility] weight 2021-02-14 10:00:00 182 [lb_av] Common S pirit [facility] temperature 2021-02-14 10:00:00 98.2 [degF] Common S pirit [facility] bmi 2021-02-14 10:00:00 31.24 kg/m2 Common S pirit [facility] oximetry 2021-02-14 10:00:00 97 % Common S pirit [facility] respiratory rate 2021-02-14 10:00:00 16 /min Comm on [facility] blood pressure 2021-02-14 10:00:00 116 mm[Hg] Common [facility] - systolic [facility] blood pressure 2021-02-14 10:00:00 62 mm[Hg] [facility] - diastolic [facility] height 2020-12-28 13:00:00 64 [in_i] Common S pirit [facility] weight 2020-12-28 13:00:00 182 [lb_av] Common [facility] temperature 2020-12-28 13:00:00 98.1 [degF] [facility] bmi 2020-12-28 13:00:00 31.24 kg/m2 [facility] height 2020-12-12 14:40:00 64 [in_i] [facility] weight 2020-12-12 14:40:00 185 [lb_av] [facility] temperature 2020-12-12 14:40:00 97.2 [degF] [facility] bmi 2020-12-12 14:40:00 31.75 kg/m2 [facility] oximetry 2020-12-12 14:40:00 95 % [facility] respiratory rate 2020-12-12 14:40:00 18 /min Comm on [facility] blood pressure 2020-12-12 14:40:00 114 mm[Hg] Common [facility] systolic [facility] blood pressure 2020-12-12 14:40:00 67 mm[Hg] Common [facility] diastolic [facility] Procedures This patient has no known procedures. Encounters Start End Encounter Admission Attending Care Care Encounter Source Date/Time Date/Time Type Type Clinicians Facility Department ID 2022-07-01 Outpatient Ron STAKBARLC STLMLC [id number] Common 12:02:00 Nery [id number] [facility] 2022-05-09 Outpatient Ron, STAKBARLC STLMLC [id number] Common 07:39:00 Nery [id number] [facility] 2022-04-24 Outpatient Ron, STLMLC STLMLC [id number] Common 13:47:00 Nery [id number] [facility] 2022-03-28 Outpatient Ron, STLMLC STLMLC [id number] Common 09:10:02 Nery [id number] [facility] 2021-11-07 Outpatient [place], STLMLC STLMLC [id number] Common 09:52:00 Nery 80103 [facility] 2021-10-08 Outpatient [place], STLMLC STLMLC [id number] Common 09:15:01 Nery [id number] [facility] 2021-09-17 Outpatient [place], STLMLC STLMLC [id number] Common 10:37:01 Nery 16624 [facility] 2021-03-28 Outpatient [place], STLMLC STLMLC [id number] Common 14:24:18 Nery [id number] [facility] 2021-03-28 Outpatient [place], STLMLC STLMLC [id number] Common 12:56:41 Nery [id number] [facility] 2021-03-28 Outpatient [place], STLMLC STLMLC [id number] Common 11:06:17 Nery [id number] [facility] 2021-03-28 Outpatient [place], STLMLC STLMLC [id number] Common 10:59:18 Nery 39501 [facility] 2022-04-01 2022-04-01 OFFICE STLMLC STLMLC [id number] Co mmon 00:00:00 00:00:00 VISIT [facility] PT - [facility] LEVEL 4 [facility] 2021-11-09 2021-11-09 OFFICE STLMLC STLMLC [id number] Co mmon 00:00:00 00:00:00 VISIT EST Spir it PT LEVEL 3 - [facility] 2021-10-10 2021-10-10 OFFICE STLMLC STLMLC [id number] Co mmon 00:00:00 00:00:00 VISIT EST Spir it PT LEVEL 3 - [facility] 2021-09-19 2021-09-19 OFFICE STLMLC STLMLC [id number] Co mmon 00:00:00 00:00:00 VISIT EST Spir it PT LEVEL 3 - [facility] 2021-06-05 2021-06-05 (TEL) STLMLC STLMLC [id number] Co mmon 00:00:00 00:00:00 [facility] 2021-02-14 2021-02-14 OFFICE STLMLC STLMLC [id number] Co mmon 00:00:00 00:00:00 VISIT EST Spir it PT LEVEL 3 [facility] 2020-12-28 2020-12-28 OFFICE STLMLC STLMLC [id number] Co mmon 00:00:00 00:00:00 VISIT EST Spir it PT LEVEL 3 [facility] 2020-12-27 2020-12-27 (TEL) STLMLC STLMLC [id number] Co mmon 00:00:00 00:00:00 [facility] 2020-12-21 2020-12-21 OFFICE STLMLC STLMLC [id number] Co mmon 00:00:00 00:00:00 VISIT [facility] PT - [facility] LEVEL 1 [facility] 2020-12-12 2020-12-12 OFFICE STLMLC STLMLC [id number] Co mmon 00:00:00 00:00:00 VISIT EST Spir it PT LEVEL 3 [facility] 2020-08-16 2020-08-16 Outpatient STLMLC STLMLC [id number] Common 00:00:00 00:00:00 [facility] 2020-08-11 2020-08-11 Outpatient STLMLC STLMLC [id number] Common 00:00:00 00:00:00 [facility] 2020-07-11 2020-07-11 Outpatient STLMLC STLMLC [id number] Common 00:00:00 00:00:00 [facility] 2020-06-28 2020-06-28 Outpatient STLMLC STLMLC [id number] Common 00:00:00 00:00:00 [facility] 2020-03-30 2020-03-30 Outpatient STLMLC STLMLC [id number] Common 00:00:00 00:00:00 [facility] 2019-12-29 2019-12-29 Outpatient STLMLC STLMLC [id number] Common 00:00:00 00:00:00 [facility] 2019-11-18 2019-11-18 [facility] [id number] Common 13:13:00 13:13:[address] [facility] 2019-11-12 2019-11-12 [facility] [id number] Common 18:17:00 18:17:[address] [facility] 2019-09-28 2019-09-28 [facility] [id number] Common 11:40:00 11:40:[address] [facility] 2019-09-27 2019-09-27 [facility] [id number] Common 12:08:00 12:08:[address] [facility] 2019-03-15 2019-03-15 [facility] [id number] Common 14:23:00 14:23:[address] [facility] 2019-03-12 2019-03-12 [facility] [id number] Common 10:00:00 10:00:[address] [facility] 2019-01-12 2019-01-12 [facility] [id number] Common 15:20:00 15:20:[address] [facility] Results Test Description Test Time Test Comments Results Result Comments Source Hip Left 2 View Hip Left 2 View Hip Right 2 View Hip Right 2 View
[2022-09-05 20:12] LABS: Specific Gravity 1.021 (1.005-1.030); Urine Bacteria None Seen /HPF (<20); Urine Bilirubin NEGATIVE (Negative); Urine Blood Negative (Negative); Urine Clarity Clear (Clear); Urine Color Light-Yellow (Yellow); Urine Crystals Unidentified Few /HPF (None Seen); Urine Glucose NEGATIVE (Negative); Urine Mucus 4+ /HPF (None Seen); Urine Protein TRACE (Negative); Urine RBC <5 /HPF (None Seen); Urine Urobilinogen Normal (Normal)
[2022-09-05 20:14] LABS: Absolute Lymphocytes (CBC) 2.8 K/uL (0.7-4.9); Hematocrit 42.8 % (36.0-45.0); MCV 85.4 fL (80-100); MPV 7.2 fL (7.6-11.3); RBC Red Blood Cell Count 5.01 M/uL (3.86-4.86)
[2022-09-05] MEDS ORDERED: FAMOTIDINE 20 MG/2 ML VIAL IV ONE (20:15)
[2022-09-05] MEDS ORDERED: ONDANSETRON 4 MG/2 ML VIAL ONE (20:15)
[2022-09-05 20:37] LABS: ALT/SGPT 43 U/L (13-56); AST/SGOT 21 U/L (15-37); Albumin 3.4 g/dL (3.4-5.0); Alkaline Phosphatase 150 U/L (45-117); BUN Blood Urea Nitrogen 9 mg/dL (7-18); Bicarbonate 26 mEq/L (21-32); Bilirubin Total 0.3 mg/dL (0.2-1.0); Glomerular Filtration Rate 91 ml/min (=/>90); Glucose Level 102 mg/dL (74-106); Lipase 19 U/L (13-75); Potassium 4.1 mEq/L (3.5-5.1); Protein, Total 7.2 g/dL (6.4-8.2); Sodium Level 138 mEq/L (136-145)
[2022-09-05 20:39] LABS: Troponin High Sensitivity < 3.0 pg/mL (<58.9)
--- NOTE | 2022-09-05 21:15 | RAD REPORT ---
[facility] 8:47 pm CLINICAL HISTORY: upper abdomen pain COMPARISON: Chest Single View dated 11/28/2020; Chest Pa And Lat (2 Views) dated 03/12/2019 TECHNIQUE: Portable AP view of the chest. FINDINGS: The lungs are clear. No pneumothorax or effusion. The cardiomediastinal contours are unre markable. IMPRESSION: No acute cardiopulmonary process.
--- NOTE | 2022-09-05 21:46 | RAD REPORT ---
EXAM DESCRIPTION: CT - Abdomen Pelvis W Contrast - 09/05/2022 9:24 pm CLINICAL HISTORY: ABD PAIN COMPARISON: No comparisons TECHNIQUE: Thin cut axial CT imaging of the abdomen and pelvis was performed following intravenous a dministration of 100 mL Isovue 300. Multiplanar reformats were generated and reviewed. All CT scans are performed using dose optimization technique as appropriate and may include automated exposure control or mA/KV adjustment according to patient size. FINDINGS: No suspicious findings in the lung bases. The liver, spleen, adrenal glands, and pancreas show no suspicious findings. Tiny calculus present de pendently within the gallbladder body. No intra or extrahepatic biliary ductal dilation. Symmetric renal function is seen with no hydronephrosis or suspicious renal mass. Small cortical cyst s noted bilaterally the largest at the superior pole measuring 1.9 centimeter. No dilated bowel loops or bowel wall thickening. No free air, free fluid or inflammatory stranding. N o hernia, mass or bulky lymphadenopathy. The urinary bladder is suboptimally distended limiting evalu ation with mild pericystic fat stranding, nonspecific, but could relate to sequelae of cystitis. No suspicious bony findings. Superior endplate compression deformity at T12, likely chronic. IMPRESSION: No acute intra-abdominal process. Tiny gallstone. Suboptimally distended urinary bladder, limiting evaluation, with nonspecific mild pericystic fat str anding, could relate to sequelae of cystitis. Please correlate clinically and with urinalysis results . Likely chronic superior endplate compression deformity at T12.
--- NOTE | 2022-09-05 23:35 | ER ---
Nurse's Notes [facility] Name: Rosaura Cohen Age: 62 yrs Sex: Female : 1960 Arrival Date: 09/05/2022 Time: 19:19 Bed Treatment Private MD: Diagnosis: Other cholelithiasis without obstruction Presentation: 09/05 19:36 Chief complaint: Patient states: abdominal and back pain starting at 2200 last night lg3 with nausea. Coronavirus screen: Client denies travel out of the [place] in the last 14 days. At this time, the client does not indicate any symptoms associated with coronavirus-19. Ebola Screen: No symptoms or risks identified at this time. Initial Sepsis Screen: Does the patient meet any 2 criteria? No. Patient's initial sepsis screen is negative. Does the patient have a suspected source of infection? No. Patient's initial sepsis screen is negative. Risk Assessment: Do you want to hurt yourself or someone else? Patient reports no desire to harm self or others. Onset of symptoms was September 04, 2022. 19:36 Method Of Arrival: Ambulatory lg3 19:36 Acuity: SLY 3 lg3 Triage Assessment: 19:37 General: Appears in no apparent distress. uncomfortable, Behavior is calm, cooperative. lg3 Pain: Complains of pain in right upper quadrant and left upper quadrant Pain radiates to back. EENT: No deficits noted. No signs and/or symptoms were reported regarding the EENT system. Neuro: No deficits noted. Silveira Agitation-Sedation Scale (RASS): 0 - Alert and Calm Level of Consciousness is awake, alert, obeys commands, Oriented to person, place, time, situation. Cardiovascular: No deficits noted. Denies chest pain, shortness of breath, Capillary refill < 3 seconds Clubbing of nail beds is absent JVD is absent Patient's skin is warm and dry. Respiratory: No deficits noted. Airway is patent Respiratory effort is even, unlabored, Respiratory pattern is regular, symmetrical. GI: Abdomen is round non-distended, obese, Reports upper abdominal pain, cramping, epigastric pain, nausea. : No deficits noted. No signs and/or symptoms were reported regarding the genitourinary system. Derm: No deficits noted. No signs and/or symptoms reported regarding the dermatologic system. Skin is intact, is healthy with good turgor, Skin is dry, Skin is normal, Skin temperature is warm. Musculoskeletal: No deficits noted. No signs and/or symptoms reported regarding the musculoskeletal system. Circulation, motion, and sensation intact. Range of motion: intact in all extremities. Historical: - Allergies: 19:37 PENICILLINS; lg3 - Home Meds: 19:37 meloxicam oral [Active]; Omeprazole Oral [Active]; levothyroxine 100 mcg cap [Active]; lg3 Albuterol Inhl [Active]; Tessalon Perles 100 mg Oral cap [Active]; 19:40 Lisinopril Oral [Active]; lg3 - PMHx: 19:37 Asthma; Hypothyroidism; lg3 19:40 HTN; acid reflux; lg3 - PSHx: 19:37 Total abdominal hysterectomy; lg3 - Immunization history:: Adult Immunizations up to date. - Social history:: Smoking status: Patient denies any tobacco usage or history of. Patient/guardian denies using alcohol, street drugs. Screenin:03 [facility] ED Fall Risk Assessment (Adult) History of falling in the last 3 months, sg5 including since admission No falls in past 3 months (0 pts). Abuse screen: Denies threats or abuse. Nutritional screening: No deficits noted. Tuberculosis screening: No symptoms or risk factors identified. Assessment: 20:03 General: Appears in no apparent distress. comfortable, Behavior is calm, cooperative, sg5 appropriate for age. Pain: Complains of pain in back and abdomen and left upper quadrant and right upper quadrant. Neuro: Level of Consciousness is awake, alert, obeys commands, Oriented to person, place, time, situation, Appropriate for age. Cardiovascular: Capillary refill < 3 seconds Patient's skin is warm and dry. Respiratory: Airway is patent Trachea midline Respiratory effort is even, unlabored. GI: Abdomen is round non-distended, Bowel sounds present X 4 quads. Abd is soft and non tender X 4 quads. : Reports burning with urination, pain in left lower quadrant(s). EENT: No signs and/or symptoms were reported regarding the EENT system. Derm: No signs and/or symptoms reported regarding the dermatologic system. Musculoskeletal: No signs and/or symptoms reported regarding the musculoskeletal system. Vital Signs: 19:36 BP 154 / 87; Pulse 69; Resp 17 S; Temp 98(O); Pulse Ox 99% on R/A; Weight 84.82 kg (R); lg3 Height 5 ft. 5 in. (R); Pain 9/10; 20:39 BP 130 / 81; Pulse 58; Resp 16; Temp 98.3(O); Pulse Ox 100% on R/A; sg5 19:36 Body Mass Index 31.12 (84.82 kg, 165.1 cm) lg3 19:36 Pain Scale: Adult lg3 ED Course: 19:22 Patient arrived in ED. jj6 19:29 Bryan Carroll PA is PHCP. cp 19:29 Lizandro Campos MD is Attending Physician. cp 19:37 Triage completed. lg3 19:37 Arm band placed on right wrist. lg3 19:51 Natalie Matias, PAULINE is Primary Nurse. sg5 20:03 Patient has correct armband on for positive identification. Bed in low position. Call sg5 light in reach. Adult w/ patient. Valuables Left with patient. 20:03 Inserted saline lock: 20 gauge in left antecubital area, using aseptic technique. Blood sg5 collected. 20:48 XRAY Chest (1 view) In Process Unspecified. EDMS 21:24 CT Abd/Pelvis - IV Contrast Only In Process Unspecified. EDMS 23:31 US Abdomen Limited: gallbladder In Process Unspecified. EDMS 23:34 Syed Wray MD is Referral Physician. cp 23:48 No provider procedures requiring assistance completed. IV discontinued, intact, cg bleeding controlled, No redness/swelling at site. Pressure dressing applied. Administered Medications: 20:12 Drug: Famotidine IVP 20 mg Route: IVP; Site: left antecubital; sg5 21:00 Follow up: Response: No adverse reaction; Marked relief of symptoms pf1 20:12 Drug: Ondansetron IVP 4 mg Route: IVP; Site: left antecubital; sg5 21:00 Follow up: Response: No adverse reaction; Marked relief of symptoms pf1 Medication: 23:48 VIS not applicable for this client. cg Outcome: 23:34 Discharge ordered by MD. cp 23:46 Discharged to home ambulatory. pf1 23:46 Condition: improved 23:48 Discharged to home ambulatory. cg 23:48 Condition: stable 23:48 Discharge instructions given to patient, Instructed on discharge instructions, follow up and referral plans. medication usage, Demonstrated understanding of instructions, follow-up care, medications, Prescriptions given X 2. 23:48 Patient left the ED. cg Signatures: Dispatcher [employer] EDMS Bryan Carroll PA PA cp Garcia, Cindy, RN RN cg Karyna Johnson RN RN lg3 Petra Lucas6 Tawanna Drummond RN RN pf1 Natalie Matias RN RN sg5
--- NOTE | 2022-09-05 23:35 | EDPHYS ---
Physician Documentation [facility] Name: Rosaura Cohen Age: 62 yrs Sex: Female : 1960 Arrival Date: 09/05/2022 Time: 19:19 Bed Treatment Private MD: ED Physician Lizandro Capmos HPI: 09/05 19:50 This 62 yrs old Female presents to ER via Ambulatory with complaints of Abdominal Pain. cp 19:50 The patient presents with abdominal pain in the upper abdomen. cp 19:50 Onset: The symptoms/episode began/occurred last night. Associated signs and symptoms: cp Pertinent positives: nausea, mid back pain. The symptoms are described as described as feeling "bloated". Severity of pain: in the emergency department the pain is unchanged despite home interventions. Historical: - Allergies: 19:37 PENICILLINS; lg3 - Home Meds: 19:37 meloxicam oral [Active]; Omeprazole Oral [Active]; levothyroxine 100 mcg cap [Active]; lg3 Albuterol Inhl [Active]; Tessalon Perles 100 mg Oral cap [Active]; 19:40 Lisinopril Oral [Active]; lg3 - PMHx: 19:37 Asthma; Hypothyroidism; lg3 19:40 HTN; acid reflux; lg3 - PSHx: 19:37 Total abdominal hysterectomy; lg3 - Immunization history:: Adult Immunizations up to date. - Social history:: Smoking status: Patient denies any tobacco usage or history of. Patient/guardian denies using alcohol, street drugs. ROS: 19:55 Constitutional: Negative for body aches, chills, fever, poor PO intake. cp 19:55 Abdomen/GI: Positive for abdominal pain. cp 19:55 Back: Positive for radiated pain. Exam: 20:00 Constitutional: The patient appears in no acute distress, alert, awake, cp non-diaphoretic, non-toxic, well developed, well nourished, uncomfortable. 20:00 Head/Face: Normocephalic, atraumatic. cp 20:00 Eyes: Periorbital structures: appear normal, Conjunctiva: normal, no exudate, no injection, Sclera: no appreciated abnormality, Lids and lashes: appear normal, bilaterally. 20:00 ENT: External ear(s): are unremarkable, Nose: is normal, Mouth: Lips: moist, Oral mucosa: moist, Posterior pharynx: is normal, airway is patent, no erythema, no exudate. 20:00 Chest/axilla: Inspection: normal. 20:00 Cardiovascular: Rate: normal, Rhythm: regular, Edema: is not appreciated, JVD: is not appreciated. 20:00 Respiratory: the patient does not display signs of respiratory distress, Respirations: normal, no use of accessory muscles, no retractions, labored breathing, is not present, Breath sounds: are clear throughout, no decreased breath sounds, no stridor, no wheezing. 20:00 Abdomen/GI: Inspection: abdomen appears normal, Bowel sounds: active, all quadrants, Palpation: soft, in all quadrants, mild abdominal tenderness, in the epigastric area and right upper quadrant, rebound tenderness, is not appreciated, voluntary guarding, is not appreciated. 20:00 Back: pain, that is mild, of the right mid back, ROM is normal. 20:00 Skin: cellulitis, is not appreciated, no rash present. 20:00 Neuro: Orientation: to person, place \\T\\ time. Mentation: is normal, Motor: moves all fours, strength is normal. 20:27 ECG was reviewed by the Attending Physician. cp Vital Signs: 19:36 BP 154 / 87; Pulse 69; Resp 17 S; Temp 98(O); Pulse Ox 99% on R/A; Weight 84.82 kg (R); lg3 Height 5 ft. 5 in. (R); Pain 9/10; 20:39 BP 130 / 81; Pulse 58; Resp 16; Temp 98.3(O); Pulse Ox 100% on R/A; sg5 19:36 Body Mass Index 31.12 (84.82 kg, 165.1 cm) lg3 19:36 Pain Scale: Adult lg3 MDM: 19:45 Patient medically screened. cp 20:00 Differential diagnosis: cholecystitis, Cholelithiasis, non-specific abd pain, cp pancreatitis, Peptic Ulcer Disease, Perf. Duodenal Ulcer, Perf. Gastric Ulcer, Pyelonephritis, Ureterolithiasis, urinary tract infection. 23:33 Data reviewed: vital signs, nurses notes, lab test result(s), EKG, radiologic studies, cp CT scan, plain films, ultrasound. 23:33 Consideration of Admission/Observation Escalation of care including cp admission/observation considered. I considered the following discharge prescriptions or medication management in the emergency department Medications were administered in the Emergency Department. See MAR. Care significantly affected by the following chronic conditions: Hypertension. Counseling: I had a detailed discussion with the patient and/or guardian regarding: the historical points, exam findings, and any diagnostic results supporting the discharge/admit diagnosis, lab results, radiology results, the need for outpatient follow up, for definitive care, a general surgeon, to return to the emergency department if symptoms worsen or persist or if there are any questions or concerns that arise at home. Response to treatment: the patient's symptoms have markedly improved after treatment, and as a result, I will discharge patient. Special discussion: Based on the patient's Hx, exam, and Dx evaluation, there is no indication for emergent surgery or inpatient Tx. It is understood by the patient/guardian that if the Sx's persist or worsen they need to return immediately for re-evaluation. 09/05 19:44 Order name: CBC with Diff; Complete Time: 21:03 09/05 21:03 Interpretation: Normal except: RBC 5.01; MPV 7.2; EOSINOPHIL % 10.9; BASO% 1.4; EOSA cp 0.9. 09/05 19:44 Order name: CMP; Complete Time: 21:03 cp 09/05 22:25 Interpretation: Normal except: ALK 150; GLOB 3.8; A/G 0.9. cp 09/05 19:44 Order name: Lipase; Complete Time: 21:03 cp 09/05 19:44 Order name: Urinalysis w/ reflexes; Complete Time: 21:03 cp 09/05 19:44 Order name: Troponin High Sensitivity; Complete Time: 21:03 cp 09/05 21:04 Interpretation: Reviewed. 09/05 19:44 Order name: CT Abd/Pelvis - IV Contrast Only; Complete Time: 22:23 cp 09/05 19:44 Order name: XRAY Chest (1 view); Complete Time: 22:23 cp 09/05 22:27 Order name: US Abdomen Limited: gallbladder cp 09/05 19:44 Order name: EKG; Complete Time: 19:44 cp 09/05 19:44 Order name: IV Saline Lock; Complete Time: 20:03 cp 09/05 19:44 Order name: Labs collected and sent; Complete Time: 20:03 cp 09/05 19:44 Order name: EKG - Nurse/Tech; Complete Time: 20:18 cp 09/05 22:27 Order name: NPO; Complete Time: 23:44 cp EC:27 Rate is 63 beats/min. Rhythm is regular. IL interval is normal. QRS interval is normal. cp QT interval is normal. T waves are Inverted in lead aVR. Interpreted by me. Reviewed by me. Administered Medications: 20:12 Drug: Famotidine IVP 20 mg Route: IVP; Site: left antecubital; sg5 21:00 Follow up: Response: No adverse reaction; Marked relief of symptoms pf1 20:12 Drug: Ondansetron IVP 4 mg Route: IVP; Site: left antecubital; sg5 21:00 Follow up: Response: No adverse reaction; Marked relief of symptoms pf1 Disposition: 09/06 10:01 Co-signature as Attending Physician, Lizandro Campos MD I reviewed the patient's care rn provided by the Advanced Practice Provider and agree with the diagnosis and treatment plan. Disposition Summary: 09/05/22 23:34 Discharge Ordered Location: Home cp Problem: new cp Symptoms: have improved cp Condition: Stable cp Diagnosis - Other cholelithiasis without obstruction cp Followup: cp - With: Syed Wray MD - When: 1 - 2 days - Reason: Recheck today's complaints Discharge Instructions: - Discharge Summary Sheet cp - Cholelithiasis cp Forms: - Medication Reconciliation Form cp - Thank You Letter cp - Antibiotic Education cp - Prescription Opioid Use cp - [email or web address] cp Prescriptions: - Zofran 4 mg Oral Tablet - take 1 tablet by ORAL route every 12 hours As needed; 20 tablet; Refills: 0, cp Product Selection Permitted - dicyclomine 20 mg Oral Tablet - take 1 tablet by ORAL route 4 times per day; 30 tablet; Refills: 0, Product cp Selection Permitted Signatures: Dispatcher [employer] EDLizandro Smith MD MD rn Page, Corey, PA PA cp Karyna Johnson RN RN lg3 Natalie Matias RN RN sg5 Tawanna Drummond RN pf1
[2022-09-06 00:50] VITALS: BP 130/81; TEMP 98.3; O2SAT 100
--- NOTE | 2022-09-06 15:36 | RAD REPORT ---
EXAM DESCRIPTION: US - Abdomen Exam Limited - 09/05/2022 11:29 pm CLINICAL HISTORY: 62 years Female, upper abdomen pain TECHNIQUE: Real-time transabdominal imaging of the right upper quadrant was performed. COMPARISON: None. FINDINGS: LIVER: Imaged portions of the liver demonstrates no focal abnormality. GALLBLADDER: Cholelithiasis and mild biliary sludge. No abnormal wall thickening or pericholecystic f luid. Sonographic Sandoval sign: Negative. CBD/BILE DUCT: The common bile duct is not dilated, measuring 3 mm. No intra- or extrahepatic ducta l dilatation. OTHER: Noncontributory. IMPRESSION: 1. Cholelithiasis without sonographic evidence for cholecystitis. Electronically signed by: Dale Beltran MD 09/05/2022 11:59 PM CDT Due to temporary technical issues with the PACS/Fluency reporting system, reports are being signed by the in house radiologists without review as a courtesy to insure prompt reporting. The interpreting radiologist is fully responsible for the content of the report.
--- NOTE | 2022-09-07 16:21 | EKG ---
Test Date: 2022-09-05 Test Time: 20:24:56 Claims Consultant: BREANA MEASUREMENT RESULTS: Intervals: Rate: 63 VT: 138 QRSD: 78 QT: 428 QTc: 437 [place]: P: 49 VT: 138 QRS: 62 T: 51 INTERPRETIVE STATEMENTS: Normal sinus rhythm Normal ECG No previous ECG available for comparison Electronically Signed On 09-07-22 16:18:13 CDT by Delta Da Silva
== END 2022-09-05 23:48 | disposition home or self-care (01) ==
LOC: ER 19:19
DX: K80.80 Other cholelithiasis without obstruction (principal); I10 Essential (primary) hypertension; E03.9 Hypothyroidism, unspecified; Z88.0 Allergy status to penicillin
CPT/HCPCS: 93005; 85025; 81001; 36415; 84484; 83690; 80053; 74177; 71045; 76705; 96375; 96374; 99284; Q9967; J2405

== ENCOUNTER 2022-09-11 16:26 | Inpatient (IN) | payer OTHER ==
--- NOTE | 2022-09-11 17:46 | RAD REPORT ---
EXAM DESCRIPTION: US - Abdomen Exam Limited - 09/11/2022 5:28 pm CLINICAL HISTORY: PAIN COMPARISON: Abdomen Exam Limited dated 09/05/2022; Abdomen Pelvis W Contrast dated 09/05/2022 FINDINGS: The gallbladder demonstrates no gallstones. No pericholecystic fluid or gallbladder wall t hickening. The common bile duct is normal measuring 5 mm. The liver demonstrates no findings of intrahepatic biliary dilatation. IMPRESSION: Negative for cholelithiasis or acute cholecystitis
[2022-09-11] MEDS ORDERED: FAMOTIDINE 20 MG/2 ML VIAL IV ONE (18:46)
[2022-09-11] MEDS ORDERED: MORPHINE 4 MG/ML SYR ONE ×2 (18:46→21:07)
[2022-09-11] MEDS ORDERED: NA CHLORIDE 0.9% 1,000 ML ONE ×2 (18:46→19:30)
[2022-09-11 19:05] LABS: Absolute Lymphocytes (CBC) 2.6 K/uL (0.7-4.9); Hematocrit 43.9 % (36.0-45.0); MCV 86.3 fL (80-100); MPV 7.6 fL (7.6-11.3); RBC Red Blood Cell Count 5.08 M/uL (3.86-4.86)
[2022-09-11] MEDS ORDERED: ONDANSETRON 4 MG/2 ML VIAL ONE (19:17)
[2022-09-11 19:25] LABS: Specific Gravity 1.025 (1.005-1.030); Urine Bacteria <20 /HPF (<20); Urine Bilirubin NEGATIVE (Negative); Urine Blood Negative (Negative); Urine Clarity Turbid (Clear); Urine Color Yellow (Yellow); Urine Glucose NEGATIVE (Negative); Urine Mucus 2+ /HPF (None Seen); Urine Protein 1+ (Negative); Urine RBC <5 /HPF (None Seen); Urine Urobilinogen Normal (Normal); Urine pH 6.5 (5.0-7.0)
--- NOTE | 2022-09-11 19:44 | EDPHYS ---
Physician Documentation [facility] Name: Rosaura Choen Age: 62 yrs Sex: Female : 1960 Arrival Date: 09/11/2022 Time: 16:26 Bed 12 Private MD: ED Physician Bryan Cross HPI: 09/11 17:31 This 62 yrs old Female presents to ER via Ambulatory with complaints of Abdominal Pain. snw 17:31 The patient presents with abdominal pain in the epigastric area, in the upper abdomen. snw Onset: The symptoms/episode began/occurred acutely, and became worse yesterday. The symptoms radiate to back. Associated signs and symptoms: Pertinent positives: nausea and vomiting. The symptoms are described as steady. Severity of pain: At its worst the pain was moderate severe in the emergency department the pain is unchanged. The patient has experienced a previous episode, last week, but today's symptoms are worse. The patient has been recently seen by a physician: the patient's primary care provider, yesterday, with different complaint(s). Pt has an appt with Dr. Wray later in the month but is in too much pain to wait. Historical: - Allergies: 17:07 PENICILLINS; ll1 - PMHx: 17:07 acid reflux; Asthma; HTN; Hypothyroidism; ll1 - PSHx: 17:07 Total abdominal hysterectomy; L arm SX for FX; ll1 - Immunization history:: Client reports receiving the 2nd dose of the Covid vaccine. - Social history:: Smoking status: Patient denies any tobacco usage or history of. ROS: 17:30 Constitutional: Negative for fever, chills, and weight loss, Eyes: Negative for injury, snw pain, redness, and discharge, ENT: Negative for injury, pain, and discharge, Neck: Negative for injury, pain, and swelling, Cardiovascular: Negative for chest pain, palpitations, and edema, Respiratory: Negative for shortness of breath, cough, wheezing, and pleuritic chest pain, Back: Negative for injury and pain, : Negative for injury, bleeding, discharge, and swelling, MS/Extremity: Negative for injury and deformity, Skin: Negative for injury, rash, and discoloration, Neuro: Negative for headache, weakness, numbness, tingling, and seizure, Psych: Negative for depression, anxiety, suicide ideation, homicidal ideation, and hallucinations. 17:30 Abdomen/GI: Positive for abdominal pain, nausea and vomiting, abdominal distension, of the right upper quadrant and left upper quadrant. Exam: 17:29 Head/Face: Normocephalic, atraumatic. Eyes: Pupils equal round and reactive to light, snw extra-ocular motions intact. Lids and lashes normal. Conjunctiva and sclera are non-icteric and not injected. Cornea within normal limits. Periorbital areas with no swelling, redness, or edema. ENT: Nares patent. No nasal discharge, no septal abnormalities noted. Tympanic membranes are normal and external auditory canals are clear. Oropharynx with no redness, swelling, or masses, exudates, or evidence of obstruction, uvula midline. Mucous membranes moist. Neck: Trachea midline, no thyromegaly or masses palpated, and no cervical lymphadenopathy. Supple, full range of motion without nuchal rigidity, or vertebral point tenderness. No Meningismus. Chest/axilla: Normal chest wall appearance and motion. Nontender with no deformity. No lesions are appreciated. Cardiovascular: Regular rate and rhythm with a normal S1 and S2. No gallops, murmurs, or rubs. Normal PMI, no JVD. No pulse deficits. Respiratory: Lungs have equal breath sounds bilaterally, clear to auscultation and percussion. No rales, rhonchi or wheezes noted. No increased work of breathing, no retractions or nasal flaring. Back: No spinal tenderness. No costovertebral tenderness. Full range of motion. Skin: Warm, dry with normal turgor. Normal color with no rashes, no lesions, and no evidence of cellulitis. MS/ Extremity: Pulses equal, no cyanosis. Neurovascular intact. Full, normal range of motion. Neuro: Awake and alert, GCS 15, oriented to person, place, time, and situation. Cranial nerves II-XII grossly intact. Motor strength 5/5 in all extremities. Sensory grossly intact. Cerebellar exam normal. Normal gait. Psych: Awake, alert, with orientation to person, place and time. Behavior, mood, and affect are within normal limits. 17:29 Constitutional: The patient appears alert, anxious, uncomfortable. 17:29 Abdomen/GI: Inspection: distension, that is moderate, Bowel sounds: diminished, in all quadrants, Palpation: moderate abdominal tenderness, in the right upper quadrant and left upper quadrant. 19:43 ECG was reviewed by the Attending Physician. [facility] Vital Signs: 17:05 BP 128 / 91; Pulse 88; Resp 18; Temp 97.8; Pulse Ox 96% ; Weight 83.46 kg; Height 5 ft. ll1 5 in. ; Pain 9/10; 18:52 BP 111 / 76; Pulse 84; Resp 18; Pulse Ox 100% on R/A; mb9 20:47 BP 124 / 73; Pulse 78; Resp 18; Pulse Ox 98% on R/A; mb9 17:05 Body Mass Index 30.62 (83.46 kg, 165.1 cm) ll1 17:05 Pain Scale: Adult ll1 Guido Coma Score: 19:43 Eye Response: spontaneous(4). Motor Response: obeys commands(6). Verbal Response: edouard oriented(5). Total: 15. MDM: 17:17 Patient medically screened. snw 18:48 Differential diagnosis: cholecystitis, Cholelithiasis, gastritis, non-specific abd snw pain, pancreatitis. Data reviewed: vital signs, nurses notes. Transition of care: After a detail discussion of the patient's case, care is transferred to Bryan Cross MD. 09/11 16:30 Order name: UAM; Complete Time: 19:40 snw 09/11 17:23 Order name: CBC with Diff; Complete Time: 19:40 w 09/11 17:23 Order name: CMP; Complete Time: 20:49 sn 09/11 17:23 Order name: Lipase; Complete Time: 20:49 [facility] 09/11 18:49 Order name: Troponin High Sensitivity; Complete Time: 20:49 [facility] 09/11 16:32 Order name: US Abdomen Limited; Complete Time: 17:48 [facility] 09/11 21:04 Order name: CT Abd/Pelvis - IV Contrast Only [facility] 09/11 18:49 Order name: EKG; Complete Time: 18:49 [facility] 09/11 19:57 Order name: CONS Physician Consult EDKS 09/11 17:23 Order name: Labs collected and sent; Complete Time: 18:51 [facility] 09/11 18:49 Order name: EKG - Nurse/Tech; Complete Time: 19:19 [facility] 09/11 19:03 Order name: Misc. Order: RECOLLECT GREEN TOP; Complete Time: 19:18 rv1 EC:43 Rate is 81 beats/min. Rhythm is regular. QRS Capac is Normal. OR interval is normal. QRS edouard interval is normal. QT interval is normal. No Q waves. T waves are Normal. No ST changes noted. Clinical impression: Normal ECG and No evidence of ischemia. Interpreted by me. Reviewed by me. Administered Medications: 18:40 Drug: NS 0.9% IV 1000 ml Route: IV; Rate: 1 bolus; Site: right antecubital; mb9 19:19 Follow up: Response: No adverse reaction; IV Status: Completed infusion mb9 18:40 Drug: Famotidine IVP 20 mg Route: IVP; Site: right antecubital; mb9 19:19 Follow up: Response: No adverse reaction mb9 18:46 Drug: morphine IVP or IV 4 mg Route: IVP; Infused Over: 4 mins; Site: right antecubital;mb9 19:19 Follow up: Response: No adverse reaction mb9 18:51 Drug: NS 0.9% IV 1000 ml Route: IV; Rate: 125 ml/hr; Site: right antecubital; mb9 21:09 Follow up: Response: No adverse reaction; IV Status: Completed infusion mb9 19:19 Drug: Ondansetron IVP 4 mg Route: IVP; Site: right antecubital; mb9 19:43 Follow up: Response: No adverse reaction mb9 19:46 Drug: Pantoprazole IVP 40 mg Route: IVP; Site: right antecubital; mb9 20:29 Follow up: Response: No adverse reaction mb9 19:52 Drug: levofloxacin IVPB 500 mg Volume: 100 ml; Route: IVPB; Infused Over: 60 mins; mb9 Site: right antecubital; 21:08 Follow up: Response: No adverse reaction; IV Status: Completed infusion mb9 21:00 Drug: morphine IVP or IV 4 mg Route: IVP; Infused Over: 4 mins; Site: right antecubital;mb9 21:08 Follow up: Response: No adverse reaction mb9 Disposition: 18:52 Co-signature as Attending Physician, Bryan Cross MD I agree with the assessment and edouard plan of care. Disposition Summary: 09/11/22 19:43 Hospitalization Ordered Hospitalization Status: Observation edouard Provider: Karlo Herrera cha Location: Telemetry/MedSurg (observation) edouard Condition: Stable edouard Problem: new edouard Symptoms: have improved edouard Bed/Room Type: Standard [facility] Room Assignment: 207(09/11/22 20:43) cg Diagnosis - Abdominal tenderness edouard - Other cholelithiasis without obstruction edouard - Elevated white blood cell count edouard Forms: - Medication Reconciliation Form edouard - SBAR form edouard Signatures: Dispatcher [employer] EDMS Bryan Cross MD MD cha Waters, Shelly, REAL ESTATE INVESTOR-C REAL ESTATE INVESTOR-Csnw Lidya Tapia RN RN cg Sindy Hartman RN RN ll1 Benjy, Stephanie Beaulieu RN RN mb9 Monica Carrillo rv1 Corrections: (The following items were deleted from the chart) 20:06 18:49 Abdomen Pelvis W Con+CT.RAD.BRZ ordered. EDMS EDMS 20:43 19:43 edouard cg
--- NOTE | 2022-09-11 19:44 | ER ---
Nurse's Notes [facility] Name: Rosaura Cohen Age: 62 yrs Sex: Female : 1960 Arrival Date: 09/11/2022 Time: 16:26 Bed 12 Private MD: Diagnosis: Abdominal tenderness;Other cholelithiasis without obstruction;Elevated white blood cell count Presentation: 09/11 17:05 Chief complaint: Patient states: Diagnosed with gallstones 09/05. Appontment with Kovacev ll1 isn't until 09/26. Still has severe pain, bloating, constipation, not eating well. Coronavirus screen: Vaccine status: Patient reports receiving the 2nd dose of the covid vaccine. Client denies travel out of the [place] in the last 14 days. At this time, the client does not indicate any symptoms associated with coronavirus-19. Ebola Screen: Patient denies travel to an Ebola-affected area in the 21 days before illness onset. Initial Sepsis Screen: Does the patient meet any 2 criteria? No. Patient's initial sepsis screen is negative. Does the patient have a suspected source of infection? Yes: Acute abdominal pain. Risk Assessment: Do you want to hurt yourself or someone else? Patient reports no desire to harm self or others. Onset of symptoms was September 05, 2022. 17:05 Method Of Arrival: Ambulatory ll1 17:05 Acuity: SLY 3 ll1 Triage Assessment: 17:08 General: Appears uncomfortable, Behavior is calm, cooperative, appropriate for age. ll1 Pain: Complains of pain in abdomen Pain currently is 9 out of 10 on a pain scale. GI: Reports upper abdominal pain, bloating, constipation, nausea, vomiting. Historical: - Allergies: 17:07 PENICILLINS; ll1 - PMHx: 17:07 acid reflux; Asthma; HTN; Hypothyroidism; ll1 - PSHx: 17:07 Total abdominal hysterectomy; L arm SX for FX; ll1 - Immunization history:: Client reports receiving the 2nd dose of the Covid vaccine. - Social history:: Smoking status: Patient denies any tobacco usage or history of. Screenin:18 [facility] ED Fall Risk Assessment (Adult) History of falling in the last 3 months, mb9 including since admission No falls in past 3 months (0 pts) Confusion or Disorientation No (0 pts) Intoxicated or Sedated No (0 pts) Impaired Gait No (0 pts) Mobility Assist Device Used No (0 pt) Altered Elimination No (0 pt) Score/Fall Risk Level 0 - 2 = Low Risk Oriented to surroundings, Maintained a safe environment, Educated pt \T\ family on fall prevention, incl call for assistance when getting out of bed. Abuse screen: Denies threats or abuse. Nutritional screening: No deficits noted. Tuberculosis screening: No symptoms or risk factors identified. Assessment: 18:34 Reassessment: pt brought back to ER room 12. mb9 18:55 General: Appears in no apparent distress. Behavior is calm, cooperative. Pain: mb9 Complains of pain in abdomen Pain does not radiate. Pain currently is 9 out of 10 on a pain scale. Quality of pain is described as throbbing, Pain began 2-3 days ago. Neuro: Silveira Agitation-Sedation Scale (RASS): 0 - Alert and Calm Level of Consciousness is awake, alert, obeys commands, Oriented to person, place, time, situation, Appropriate for age. Respiratory: Airway is patent Respiratory effort is even, unlabored, Respiratory pattern is regular, symmetrical. GI: Abdomen is round non-distended, Bowel sounds present X 4 quads. Abd is soft Abdomen is tender to palpation in umbilical area, right upper quadrant and left upper quadrant Reports constipation, nausea. Derm: Skin is pink, warm \T\ dry. Musculoskeletal: Range of motion: intact in all extremities. 20:00 Reassessment: Patient and/or family updated on plan of care and expected duration. Pain mb9 level reassessed. Patient is alert, oriented x 3, equal unlabored respirations, skin warm/dry/pink. Patient states feeling better. Patient states symptoms have improved. 20:49 Reassessment: attempted to call report to admitting nurse. mb9 Vital Signs: 17:05 BP 128 / 91; Pulse 88; Resp 18; Temp 97.8; Pulse Ox 96% ; Weight 83.46 kg; Height 5 ft. ll1 5 in. ; Pain 9/10; 18:52 BP 111 / 76; Pulse 84; Resp 18; Pulse Ox 100% on R/A; mb9 20:47 BP 124 / 73; Pulse 78; Resp 18; Pulse Ox 98% on R/A; mb9 17:05 Body Mass Index 30.62 (83.46 kg, 165.1 cm) ll1 17:05 Pain Scale: Adult ll1 [place] Coma Score: 19:43 Eye Response: spontaneous(4). Motor Response: obeys commands(6). Verbal Response: edouard oriented(5). Total: 15. ED Course: 16:28 Patient arrived in ED. im 16:29 Jo Almodovar FNP-C is PHCP. snw 16:29 Jeromy Arreola MD is Attending Physician. snw 17:06 Triage completed. ll1 17:08 Arm band placed on. ll1 17:29 US Abdomen Limited In Process Unspecified. EDMS 18:27 Stephanie Burleson, PAULINE is Primary Nurse. mb9 18:47 Attending Physician role handed off by Jeromy Arreola MD edouard 18:47 Bryan Cross MD is Attending Physician. edouard 18:50 No provider procedures requiring assistance completed. Inserted saline lock: 20 gauge mb9 in right antecubital area, using aseptic technique. 18:51 CBC with Diff Sent. mb9 18:51 CMP Sent. mb9 18:51 Lipase Sent. mb9 18:52 UAM Sent. mb9 19:00 Placed in gown. Bed in low position. Call light in reach. Side rails up X 1. Client mb9 placed on continuous cardiac and pulse oximetry monitoring. NIBP monitoring applied. gis manager on. 19:17 EKG done, by ED staff, reviewed by Bryan Cross MD. mb9 19:42 Karlo Herrera is Hospitalizing Provider. edouard 20:48 Patient admitted, IV remains in place. mb9 Administered Medications: 18:40 Drug: NS 0.9% IV 1000 ml Route: IV; Rate: 1 bolus; Site: right antecubital; mb9 19:19 Follow up: Response: No adverse reaction; IV Status: Completed infusion mb9 18:40 Drug: Famotidine IVP 20 mg Route: IVP; Site: right antecubital; mb9 19:19 Follow up: Response: No adverse reaction mb9 18:46 Drug: morphine IVP or IV 4 mg Route: IVP; Infused Over: 4 mins; Site: right antecubital;mb9 19:19 Follow up: Response: No adverse reaction mb9 18:51 Drug: NS 0.9% IV 1000 ml Route: IV; Rate: 125 ml/hr; Site: right antecubital; mb9 21:09 Follow up: Response: No adverse reaction; IV Status: Completed infusion mb9 19:19 Drug: Ondansetron IVP 4 mg Route: IVP; Site: right antecubital; mb9 19:43 Follow up: Response: No adverse reaction mb9 19:46 Drug: Pantoprazole IVP 40 mg Route: IVP; Site: right antecubital; mb9 20:29 Follow up: Response: No adverse reaction mb9 19:52 Drug: levofloxacin IVPB 500 mg Volume: 100 ml; Route: IVPB; Infused Over: 60 mins; mb9 Site: right antecubital; 21:08 Follow up: Response: No adverse reaction; IV Status: Completed infusion mb9 21:00 Drug: morphine IVP or IV 4 mg Route: IVP; Infused Over: 4 mins; Site: right antecubital;mb9 21:08 Follow up: Response: No adverse reaction mb9 Medication: 19:18 VIS not applicable for this client. mb9 Outcome: 19:43 Decision to Hospitalize by Provider. edouard 21:08 Admitted to Med/surg room 207, with chart, Report called to PAULINE Duvall mb9 21:08 Condition: stable 21:08 Instructed on the need for admit. 21:51 Patient left the ED. mb9 Signatures: Dispatcher [employer] EDBryan Renee MD MD cha Waters, Shelly, BLEACHING MACHINE OPERATOR-C BLEACHING MACHINE OPERATOR-Csnw Sindy Hartman RN RN [id number] Stephanie Burleson RN RN mb9 Shannan Rosado
--- NOTE | 2022-09-11 19:52 | P.HP ---
Patient History Date of Service: 09/11/22 Allergies Penicillins Allergy (Unverified 09/29/14 19:34) Unknown Physical Examination - Studies Laboratory Data (last 24 hrs) 09/11/22 18:45: WBC 15.40 H, Hgb 14.2, Hct 43.9, Plt Count 371 Assessment and Plan - Advance Directives Does patient have a Living Will: No Does patient have a Durable POA for Healthcare: No
[2022-09-11 19:55] LABS: Albumin 2.9 g/dL (3.4-5.0); Bilirubin Total 0.4 mg/dL (0.2-1.0); Potassium 4.1 mEq/L (3.5-5.1); Protein, Total 6.9 g/dL (6.4-8.2)
[2022-09-11] MEDS ORDERED: PANTOPRAZOLE 40 MG INJ ONE (19:57)
[2022-09-11] MEDS ORDERED: Levofloxacin500mg IV 500 MG/100 ML BAG IV ONE (19:57)
--- NOTE | 2022-09-11 21:54 | RAD REPORT ---
EXAM DESCRIPTION: CTAbdomen Pelvis W Contrast - 09/11/2022 9:45 pm CLINICAL HISTORY: ABD PAIN COMPARISON: Abdomen Pelvis W Contrast dated 09/05/2022; Abdomen Exam Limited dated 09/11/2022; Abdome n Exam Limited dated 09/05/2022 TECHNIQUE: CT of the abdomen and pelvis was performed. All CT scans are performed using dose optimization technique as appropriate and may include automated exposure control or mA/KV adjustment according to patient size. FINDINGS: Lower chest: Mild circumferential thickened distal esophagus. Liver: No acute abnormality or suspicious lesions. Biliary: No biliary ductal dilatation. Stomach: No significant focal abnormality. Duodenum: No significant focal abnormality. Pancreas: Mild indistinctness or on the pancreas is noted. Fatty infiltration of pancreas. Spleen: No significant abnormality. Adrenal: No suspicious lesions. Kidney/ureter: No hydronephrosis. Right upper pole renal cyst. Other renal lesions which are too smal l to characterize but are likely cyst . Retroperitoneum: No retroperitoneal adenopathy. Vascular: No aneurysm. Bowel: No significant focal abnormality. Large colonic stool burden. Peritoneum: No ascites or free air. Bladder: Grossly unremarkable. Reproductive: No adnexal masses. Hysterectomy. Bones: No acute fracture. Unchanged compression deformity in the lower thoracic spine Other: n/a IMPRESSION: Subtle peripancreatic edema suspect concerning for acute pancreatitis. No complicating f eatures.
[2022-09-11] MEDS ORDERED: ONDANSETRON 4 MG/2 ML VIAL IV PRN (22:16)
--- NOTE | 2022-09-11 22:26 | P.HP ---
Certification for Inpatient Patient admitted to: Inpatient With expected LOS: <2 Midnights Patient will require the following post-hospital care: None Practitioner: I am a practitioner with admitting privileges, knowledge of patient current condition, hospital course, and medical plan of care. Services: Services provided to patient in accordance with Admission requirements found in Title 42 Section 412.3 of the Code of Federal Regulations Patient History Date of Service: 09/11/22 Reason for admission: abdominal pain History of Present Illness: 62 yrs old Female with a past medical history of hypertension, hyperlipidemia, hypothyroidism, seasonal allergies, asthma, presents to ER with complaints of Abdominal Pain. She reports epigastric pain and upper quadrant that radiates to her back, reports that it started yesterday. Reports associated nausea and vomiting worse with p.o. intake. She reports pain is 7 out of 10. Relieved somewhat with as needed medications from the emergency room. Per ER physician Pt has an appt with Dr. Wray later in the month but is in too much pain to wait. ED course CT of the abdomen pelvis Subtle peripancreatic edema suspect concerning for acute pancreatitis Laboratory evaluation WBCs 15.40, early left shift neutrophils at 10.3 mild hyponatremia 135 elevated ALK 130, hypoalbumin 2.9, lipase normal at 63, urine +1 ketones +75 leukoesterase Allergies Penicillins Allergy (Unverified 09/29/14 19:34) Unknown - Past Medical/Surgical History Diabetic: No -: Hypertension -: Hyperlipidemia -: Hypothyroidism -: Seasonal allergies -: Asthma -: Hysterectomy -: neisha in her arm - Social History Smoking Status: Former smoker Smoking therapy provided: No Alcohol use: Yes Caffeine use: Yes Review of Systems 10-point ROS is otherwise unremarkable Physical Examination - Physical Exam General: Alert, In no apparent distress, Oriented x3 HEENT: Atraumatic, Normocephalic, PERRLA Neck: Supple, 2+ carotid pulse no bruit, JVD not distended Respiratory: Clear to auscultation bilaterally, Normal air movement Cardiovascular: No edema, Regular rate/rhythm, Normal S1 S2 Capillary refill: <2 Seconds Gastrointestinal: Normal bowel sounds (Epigastric tenderness, right upper quadrant tenderness) Musculoskeletal: No clubbing, No swelling Integumentary: No rashes, No breakdown Neurological: Normal speech, Normal strength at 5/5 x4 extr, Cranial nerves 3-12 intact - Studies Laboratory Data (last 24 hrs) 09/11/22 19:06: Sodium 135 L, Potassium 4.1, BUN 15, Creatinine 0.71, Glucose 87, Total Bilirubin 0.4, AST 15, ALT 26, Alkaline Phosphatase 130 H, Lipase 63 09/11/22 18:45: WBC 15.40 H, Hgb 14.2, Hct 43.9, Plt Count 371 Assessment and Plan - Plan Assessment plan Abdominal pain with nausea vomiting Suspected acute pancreatitis Leukocytosis-likely secondary to acute pancreatitis Essential hypertension Hyperlipidemia Asthma Seasonal allergies DVT prophylaxis Assessment plan Abdominal pain with nausea vomiting-n.p.o., as needed antiemetics, as needed analgesics IV fluids, GI consult, CT of the abdomen pelvis Subtle peripancreatic edema suspect concerning for acute pancreatitis Laboratory evaluation WBCs 15.40, early left shift neutrophils at 10.3 mild hyponatremia 135 elevated ALK 130, hypoalbumin 2.9, lipase normal at 63, urine +1 ketones +75 leukoesterase Leukocytosis-UA, Zosyn IV every 8 Essential hypertension-resume appropriate home medications Hyperlipidemia- Asthma-as needed albuterol Seasonal allergies DVT prophylaxis-Lovenox Diet n.p.o. Full code Discharge Plan: Home Plan to discharge in: 48 Hours - Advance Directives Does patient have a Living Will: No Does patient have a Durable POA for Healthcare: No - Code Status/Comfort Care Code Status Assessed: Yes Code Status: Full Code Physician Review: Patient Assessed, Agree with Above Assessment and Plan Critical Care: No Time Spent Managing Pts Care (In Minutes): 55
[2022-09-11] MEDS ORDERED: SODIUM CHLORIDE 0.9% 10ML INJ IV PRN (22:34)
[2022-09-11] MEDS ORDERED: NA CHLORIDE 0.9% 1,000 ML IV SCH (23:00)
[2022-09-11] MEDS: NA CHLORIDE 0.9% 1,000 ML IV SCH (23:19)
[2022-09-11 23:46] VITALS: BMI 31.0
[2022-09-12 00:11] LABS: Specific Gravity > 1.030 (1.005-1.030); Urine Bilirubin NEGATIVE (Negative); Urine Blood Negative (Negative); Urine Clarity Clear (Clear); Urine Color Colorless (Yellow); Urine Glucose NEGATIVE (Negative); Urine Protein NEGATIVE (Negative); Urine Urobilinogen Normal (Normal)
[2022-09-12] MEDS: PIPER TAZO 3.375 GM in NA CHLORIDE 0.9% 100 ML IV SCH ×3 (01:20→17:20)
[2022-09-12] MEDS: MORPHINE 4 MG/ML SYR IV PRN ×4 (01:20→20:36)
[2022-09-12] MEDS ORDERED: HYDROMORPHONE HCL 1 MG/ML INJ IV ONE (02:39)
[2022-09-12 03:52] LABS: Absolute Lymphocytes (CBC) 2.5 K/uL (0.7-4.9); Hematocrit 36.5 % (36.0-45.0); Lymphocytes % 22.9 % (15.3-44.8); MCV 86.3 fL (80-100); MPV 7.8 fL (7.6-11.3); RBC Red Blood Cell Count 4.23 M/uL (3.86-4.86)
[2022-09-12 04:07] LABS: Magnesium 1.8 mg/dL (1.6-2.4); Phosphorus 2.4 mg/dL (2.5-4.9); Potassium 3.7 mEq/L (3.5-5.1)
[2022-09-12 04:46] LABS: Protime INR 1.05
[2022-09-12] MEDS: NA CHLORIDE 0.9% 1,000 ML IV SCH ×3 (07:18→19:00)
[2022-09-12] MEDS ORDERED: KCL 20 MEQ/100 mL IVPB 20 MEQ/100 ML BAG IV SCH (09:00)
[2022-09-12] MEDS ORDERED: MAGNESIUM SULFATE 1 gm IVPB 1 GM/100 ML BAG IV ONE (09:00)
[2022-09-12] MEDS ORDERED: ENOXAPARIN 40 MG/0.4 ML SQ SCH (09:00)
[2022-09-12] MEDS: PANTOPRAZOLE 40 MG INJ IVP SCH ×2 (10:18→21:46)
[2022-09-12] MEDS ORDERED: MINERAL OIL 30 ML UCUP PO ONE (10:23)
--- NOTE | 2022-09-12 15:43 | EKG ---
Test Date: 2022-09-12 Test Time: 07:27:43 Online Merchandising Coordinator: GE[place] MEASUREMENT RESULTS: Intervals: Rate: 71 DE: 130 QRSD: 80 QT: 388 QTc: 421 [place]: P: 52 DE: 130 QRS: 62 T: 61 INTERPRETIVE STATEMENTS: Normal sinus rhythm Normal ECG Compared to ECG 09/11/2022 19:15:35 No significant changes Electronically Signed On 09-12-22 15:42:42 CDT by Delta Da Silva
--- NOTE | 2022-09-12 15:45 | EKG ---
Test Date: 2022-09-11 Test Time: 19:15:35 Crab Catcher: MB MEASUREMENT RESULTS: Intervals: Rate: 81 CO: 140 QRSD: 72 QT: 384 QTc: 446 [place]: P: 71 CO: 140 QRS: 72 T: 78 INTERPRETIVE STATEMENTS: Normal sinus rhythm Normal ECG Compared to ECG 09/05/2022 20:24:56 No significant changes Electronically Signed On 09-12-22 15:43:24 CDT by Delta Da Silva
[2022-09-12] MEDS ORDERED: BISACODYL 10 MG RECTAL SUPP PR ONE (17:24)
[2022-09-12] MEDS ORDERED: HOME MED [ALBUTEROL INHALER 60 PUFF/8 GM] IH PRN (17:26)
[2022-09-12] MEDS: ZOLPIDEM TARTRATE 5 MG TABLET PO PRN (20:36)
[2022-09-13] MEDS: PIPER TAZO 3.375 GM in NA CHLORIDE 0.9% 100 ML IV SCH ×3 (01:43→17:33)
[2022-09-13] MEDS: NA CHLORIDE 0.9% 1,000 ML IV SCH ×4 (01:44→20:18)
[2022-09-13] MEDS: LEVOTHYROXINE SOD 0.1 MG TAB PO SCH (06:11)
[2022-09-13] MEDS: MORPHINE 4 MG/ML SYR IV PRN ×3 (06:17→20:19)
[2022-09-13 07:16] LABS: Absolute Lymphocytes (CBC) 1.9 K/uL (0.7-4.9); Hematocrit 36.5 % (36.0-45.0); MCV 86.3 fL (80-100); MPV 7.7 fL (7.6-11.3); RBC Red Blood Cell Count 4.23 M/uL (3.86-4.86)
[2022-09-13] MEDS ORDERED: DIAZEPAM 10 MG/2 ML INJ SYRINGE IV ONE (07:26)
[2022-09-13 07:48] LABS: Albumin 2.3 g/dL (3.4-5.0); Bilirubin Total 0.5 mg/dL (0.2-1.0); Magnesium 2.1 mg/dL (1.6-2.4); Potassium 4.9 mEq/L (3.5-5.1); Protein, Total 6.2 g/dL (6.4-8.2)
--- NOTE | 2022-09-13 09:18 | P.PN ---
Date of Service: 09/12/22 Subjective Patient is doing well. Pain is better controlled. Go ahead and see how she tolerates diet. Gastroenterology consultation pending. Patient most likely passed a gallstone that was seen a few days ago. MRCP pending. Physical Examination - Vitals Reviewed - Physical Exam General: Alert, In no apparent distress, Oriented x3 Respiratory: Clear to auscultation bilaterally Cardiovascular: Regular rate/rhythm, Normal S1 S2 Gastrointestinal: Normal bowel sounds (Epigastric tenderness, right upper quadrant tenderness) Musculoskeletal: No clubbing, No swelling Neurological: No focal deficits Assessment and Plan - Assessment Assessment Abdominal pain with nausea vomiting Suspected acute pancreatitis Choledocholithiasis Essential hypertension Hyperlipidemia Asthma Seasonal allergies - Plan Plan 1. MRCP 2. Surgery consultation 3. Monitor labs 4. May need inpatient versus outpatient lap shu pending surgery evaluation 5. Strict blood pressure control 6. GI and DVT prophylaxis - Advance Directives Does patient have a Living Will: No Does patient have a Durable POA for Healthcare: No - Code Status/Comfort Care Code Status Assessed: Yes Code Status: Full Code Physician Review: Patient Assessed, Agree with Above Assessment and Plan Critical Care: No Time Spent Managing Pts Care (In Minutes): 30
[2022-09-13] MEDS: PANTOPRAZOLE 40 MG INJ IVP SCH ×2 (09:36→20:19)
--- NOTE | 2022-09-13 11:08 | RAD REPORT ---
EXAM DESCRIPTION: MRI - Cholangiogram - 09/13/2022 8:23 am CLINICAL HISTORY: gallstone pancreatitis COMPARISON: Abdomen Pelvis W Contrast dated 09/11/2022; Abdomen Exam Limited dated 09/11/2022; Abdom en Exam Limited dated 09/05/2022 TECHNIQUE: Multiplanar multisequence MRI of the abdomen, utilizing MRCP protocol, obtained without IV contrast. FINDINGS: The gallbladder is markedly distended. No filling defects or evidence of gallbladder wall thickening on this MRI. No appreciable pericholecystic fluid or edema. Common bile duct is within normal limits in caliber, measuring 7 millimeter. No evidence of choledoch olithiasis. Smooth tapering the common bile duct towards the ampulla. Pancreas appears to be fatty replaced at the level the pancreatic head. No appreciable edematous ramon ges in the region of the head of the pancreas, to corroborate the CT findings. Limited T2 sequences o n this dedicated MRCP protocol, and absence of IV contrast somewhat limit evaluation. The main pancreatic duct is at the upper limit of normal in caliber, measuring 3-4 millimeter. No kassidy reciable cystic lesions or tortuosity. Incidentally noted right superior pole 1.9 centimeter renal cortical cyst. The visualized aspects of the liver, spleen, and adrenal glands are unremarkable. Visualized segments of the bowel are unremark able. The included lower lobes of the lungs are unremarkable except for segmental medial right middle lobe atelectasis. No suspicious osseous lesions. IMPRESSION: Markedly distended gallbladder, without evidence of cholelithiasis or inflammatory henao es on this MRI. Fatty replaced pancreas. Mildly prominent distal main pancreatic duct, of uncertain significance. Ple ase correlate with bilirubin and pancreatic enzyme profile. No other appreciable acute abnormality in the abdomen.
[2022-09-13] MEDS: ENOXAPARIN 40 MG/0.4 ML SQ SCH (17:33)
[2022-09-13] MEDS ORDERED: LACTULOSE 20 GM/30 ML UCUP PO ONE (17:36)
--- NOTE | 2022-09-13 17:38 | RAD REPORT ---
EXAM DESCRIPTION: NM - Hepatobiliary System W/ Ph - 09/13/2022 5:26 pm CLINICAL HISTORY: biliary dyskinesia COMPARISON: No comparisons TECHNIQUE: The patient was administered approximately 7 mCi Tc99m Choletec. Imaging of the right upp er quadrant was performed initially for up to 60 minutes. Gallbladder ejection fraction determination was then performed utilizing synthetic mgm CCK over a sl ow 30 minute infusion. FINDINGS: Normal hepatic uptake and excretion with appropriate clearance of background blood pool ac tivity. Normal visualization of biliary and small bowel activity. Gallbladder visualizes within normal time limits. The calculated ejection fraction is low at 13% (nor mal greater than 35%). Subjective pain reported by the patient: Pre-procedure - no symptoms During or subsequent to synthetic CCK infusion - no symptoms IMPRESSION: Patient cystic duct and patent sphincter of Oddi. No delay in visualization of the gallb ladder, biliary tree, or duodenum. Ejection fraction is low at 13% (normal greater than 35%). Subjective patient pain assessment as detailed above.
--- NOTE | 2022-09-13 19:23 | CON ---
Date of Consultation: 09/13/2022 Diagnosis: Pancreatitis, unknown etiology. History Of Present Illness: This is the case of a 62-year-old patient admitted to the hospital with multiple medical problems including abdominal pain associated with nausea, vomiting, radiating to the back, mainly epigastric area. He denies any trauma. He denies any dysuria, hematuria, hematochezia , or melena. Denies any recent traveling out of the country. Denies any family member sick at home. Apparently, she had an ultrasound done several weeks ago and found to have gallstones. When she go t admitted, this planned ultrasound failed to show the same result. It did not duplicate the symptom s. I would say that she has no gallstones, but the CAT scan that was done showing evidence of pancre atitis. So another theory is that if the stone passing caused pancreatitis or it has nothing to do w ith it. She feels better today. She has been seen by the decision science analyst who asked me to see the patient for evaluation. Allergies: PENICILLIN. Past Medical History: Includes hypertension, hyperlipidemia, hypothyroidism, and asthma. Also chron ic constipation. Past Surgical History: Includes hysterectomy and a neisha in her arm. Social History: She smoked occasionally. She was advised the importance of not to smoke anymore and she drinks alcohol occasionally. Family History: Noncontributory. Last colonoscopy unknown, although she has been seen by Dr. Taveras. Review of Systems: See above. Ten points otherwise unremarkable. Positive also for constipation. Physical Examination: General: Patient is awake and alert. HEENT: Pupils are equal and reactive. Anicteric. Neck: Supple. Chest: Clear. Heart: S1, S2. Abdomen: Soft and depressible. Mild epigastric tenderness but no guarding or rebound. No Sandoval si gns. No psoas signs. No Rovsing signs. Extremities: Good capillary refill. Breast: Deferred. Pelvic: Deferred. Rectal: Deferred. Neurologic: Oriented x3. Laboratory Data: Blood work shows a WBC count of 8, hemoglobin of 11.8 and platelets of 292. INR is 1.05. Sodium is 138, chloride is 110, glucose is 97, total bilirubin of 0.5, alkaline phosphatase o f 112, lipase 22. UA, nitrites negative. We have an ultrasound done 09/11/[address] Modi as negative for cholelithiasis or acute cholecystitis. We had an MRCP done today and interpreted by Dr. Tom as markedly distended gallbladder without evidence of cholelithiasis or inflammatory changes on this MRI, fatty replaced pancreas. Mildly prominent distal main pancreatic duct. No filling def ects on the gallbladder or wall edema. Now, patient had an ultrasound that was done prior to that, a nd as per patient and primary doctor at that moment shows cholelithiasis, and when we go back to 08/2022 read by the same radiologist, Dr. Modi, at that moment he pointed out cholelithiasis without ch olecystitis. Assessment: This is a 62-year-old patient, initially comes with gallstones, then no more gallstones. MRI still showed no gallstones, but the patient had pancreatitis. The patient feels better. Now t he main concern is constipation. I was asked to review the gallbladder from the surgical standpoint. I do not have an indication at this moment for a cholecystectomy without the risks outweighing the benefits, but we are going to order a HIDA scan that will help us to determine if she has a chronic cholecystitis, although may not explain the reason for her pancreatiti s. KOBY/IRVIN Voice ID: [id number] Report ID: [id number]
[2022-09-13] MEDS: ONDANSETRON 4 MG (ODT) TAB PO PRN (20:17)
[2022-09-13] MEDS: ZOLPIDEM TARTRATE 5 MG TABLET PO PRN (20:19)
[2022-09-14] MEDS: PIPER TAZO 3.375 GM in NA CHLORIDE 0.9% 100 ML IV SCH ×3 (02:03→16:30)
[2022-09-14] MEDS: NA CHLORIDE 0.9% 1,000 ML IV SCH ×4 (02:20→23:32)
[2022-09-14] MEDS: MORPHINE 4 MG/ML SYR IV PRN ×2 (04:52→17:58)
[2022-09-14] MEDS: LEVOTHYROXINE SOD 0.1 MG TAB PO SCH (06:11)
[2022-09-14] MEDS: PANTOPRAZOLE 40 MG INJ IVP SCH ×2 (07:59→20:09)
[2022-09-14] MEDS ORDERED: MAGNESIUM HYDROXIDE 8% 30 ML PO ONE (12:26)
--- NOTE | 2022-09-14 14:20 | PN ---
Date of Progress Note: 09/14/2022 Reason For Service: Constipation, abdominal pain, pancreatitis, biliary dyskinesia. History Of Present Illness: This is the case of a 62-year-old patient, admitted with multiple proble ms. At the beginning, they thought she had gallstones, but then it was not, then they found to have pancreatitis with dilatation of the common bile duct. Then, the patient complained about severe cons tipation and also difficulty eating and then we ordered a HIDA scan that showed biliary dyskinesia. Chest clear, abdomen soft and depressible. No guarding, rebound, no Sandoval signs. Extremities good capillary refill. The patient states she feels constipated. She is always constipated. They tried her suppositories and stool softeners and she stated she could not go. She wants to treat that first . HIDA scan was discussed with the patient, ejection fraction 13%. Assessment: It is a 62-year-old patient with multiple problems. My part is just to explain to her t he gallbladder part as an event. She does have pancreatitis, we see no stones. There is a theory th at probably the stone she had before probably came out and blocked the common bile duct temporally, c aused pancreatitis and then after that went into the intestines and then there was no way to prove th at, but at the same time of biliary dyskinesia should not be the cause of her pancreatitis at least f or what the evidence we have so far, so we have to consider that 2 different entities so. She is try ing to get some diet, trying to get rid of the constipation and do elective cholecystectomy since for sure I believe some of may be associated with this dyskinesia, although I want to clarify and stressed out to her very important that I do not think that all the symptoms and all the problem that she has is due to that biliary dyskinesia. We are going to try diet on her, trying to get ____ by the next for 24 to 48 hours, she does not tolerate diet, then she might have to do elective cholecystectomy at least alleviate 1 of the enough to tolerate some diet until the pancre as gets better. The benefits, alternatives, and risks of laparoscopic possible open cholecystectomy fully explained to the patient, which include, but not limited to infection, bleeding, damage to adjacent structures, anesthesia complicati on, WI, and even . HM/MODL Voice ID: [id number] Report ID: [id number]
[2022-09-14] MEDS ORDERED: PIPERACIL/TAZO 3.375 GM VIAL IV ONE (16:25)
[2022-09-14] MEDS: ONDANSETRON 4 MG (ODT) TAB PO PRN (16:29)
[2022-09-14] MEDS: ENOXAPARIN 40 MG/0.4 ML SQ SCH (16:30)
[2022-09-14] MEDS: ZOLPIDEM TARTRATE 5 MG TABLET PO PRN (20:09)
[2022-09-15] MEDS: MORPHINE 4 MG/ML SYR IV PRN ×3 (01:12→20:14)
[2022-09-15] MEDS: PIPER TAZO 3.375 GM in NA CHLORIDE 0.9% 100 ML IV SCH ×3 (01:14→17:33)
[2022-09-15] MEDS: NA CHLORIDE 0.9% 1,000 ML IV SCH ×4 (06:26→17:34)
[2022-09-15] MEDS: LEVOTHYROXINE SOD 0.1 MG TAB PO SCH (06:28)
[2022-09-15] MEDS: PANTOPRAZOLE 40 MG INJ IVP SCH ×2 (08:24→20:13)
--- NOTE | 2022-09-15 10:48 | P.PN ---
Date of Service: 09/14/22 Subjective Patient had a large bowel movement after enema given. Feeling better. Wanting to proceed with surgery on Friday. N.p.o. after midnight Friday night. Physical Examination - Vitals Reviewed - Physical Exam General: Alert, In no apparent distress, Oriented x3 Respiratory: Clear to auscultation bilaterally Cardiovascular: Regular rate/rhythm, Normal S1 S2 Gastrointestinal: Minimal tenderness(much better) Musculoskeletal: No clubbing, No swelling Neurological: No focal deficits Assessment and Plan - Assessment Assessment Abdominal pain with nausea vomiting Suspected acute pancreatitis Choledocholithiasis Essential hypertension Hyperlipidemia Asthma Seasonal allergies - Plan Plan 1. MRCP evaluated; 2. Surgery consultation appreciated; lap shu for Friday 3. s/p enema; large bowel movement 4. Strict blood pressure control 5. GI and DVT prophylaxis - Advance Directives Does patient have a Living Will: No Does patient have a Durable POA for Healthcare: No - Code Status/Comfort Care Code Status Assessed: Yes Code Status: Full Code Physician Review: Patient Assessed, Agree with Above Assessment and Plan Critical Care: No Time Spent Managing Pts Care (In Minutes): 30
--- NOTE | 2022-09-15 10:49 | P.PN ---
Date of Service: 09/13/22 Subjective Patient is doing well no new complaints. Patient denies any new complaints. Physical Examination - Vitals Reviewed - Physical Exam General: Alert, In no apparent distress, Oriented x3 Respiratory: Clear to auscultation bilaterally Cardiovascular: Regular rate/rhythm, Normal S1 S2 Gastrointestinal: Patient still with some tenderness. Looks to be distended. Status post laxative. Musculoskeletal: No clubbing, No swelling Neurological: No focal deficits Assessment and Plan - Assessment Assessment Abdominal pain with nausea vomiting Suspected acute pancreatitis Choledocholithiasis Essential hypertension Hyperlipidemia Asthma Seasonal allergies - Plan Plan 1. MRCP evaluated; 2. Surgery consultation appreciated; waiting for further testing 3. Laxative given. Hopefully patient has a large bowel movement. 4. Strict blood pressure control 5. GI and DVT prophylaxis - Advance Directives Does patient have a Living Will: No Does patient have a Durable POA for Healthcare: No - Code Status/Comfort Care Code Status Assessed: Yes Code Status: Full Code Physician Review: Patient Assessed, Agree with Above Assessment and Plan Critical Care: No Time Spent Managing Pts Care (In Minutes): 30
--- NOTE | 2022-09-15 10:50 | P.PN ---
Date of Service: 09/15/22 Subjective Continues to do well with no new complaints. Clinical symptoms are improving. N.p.o. after midnight. Plan is to do a lap suh in the morning. Physical Examination - Vitals Reviewed - Physical Exam General: Alert, In no apparent distress, Oriented x3 Respiratory: Clear to auscultation bilaterally Cardiovascular: Regular rate/rhythm, Normal S1 S2 Gastrointestinal: Patient still with some tenderness. Looks to be distended. Status post laxative. Musculoskeletal: No clubbing, No swelling Neurological: No focal deficits Assessment and Plan - Assessment Assessment Abdominal pain with nausea/vomiting Suspected acute pancreatitis Choledocholithiasis Essential hypertension Hyperlipidemia Asthma Seasonal allergies - Plan Plan 1. N.p.o. after midnight for laparoscopic cholecystectomy 2. Surgery consultation appreciated; to OR in the morning 3. Status post enema and a large bowel movement. 4. Strict blood pressure control 5. Low risk for any cardiopulmonary complications as patient does not have any significant cardiac symptoms. 6. GI and DVT prophylaxis - Advance Directives Does patient have a Living Will: No Does patient have a Durable POA for Healthcare: No - Code Status/Comfort Care Code Status Assessed: Yes Code Status: Full Code Physician Review: Patient Assessed, Agree with Above Assessment and Plan Critical Care: No Time Spent Managing Pts Care (In Minutes): 30
[2022-09-15] MEDS: ENOXAPARIN 40 MG/0.4 ML SQ SCH (17:33)
[2022-09-15] MEDS: ZOLPIDEM TARTRATE 5 MG TABLET PO PRN (20:14)
[2022-09-16] MEDS: NA CHLORIDE 0.9% 1,000 ML IV SCH ×3 (01:15→16:20)
[2022-09-16] MEDS: PIPER TAZO 3.375 GM in NA CHLORIDE 0.9% 100 ML IV SCH ×2 (01:16→09:00)
[2022-09-16] MEDS: LEVOTHYROXINE SOD 0.1 MG TAB PO SCH (06:30)
[2022-09-16 07:50] LABS: Bicarbonate 27 mEq/L (21-32); Glomerular Filtration Rate 99 ml/min (=/>90); Glucose Level 89 mg/dL (74-106); Magnesium 1.8 mg/dL (1.6-2.4); Phosphorus 2.7 mg/dL (2.5-4.9); Potassium 4.2 mEq/L (3.5-5.1); Sodium Level 142 mEq/L (136-145)
[2022-09-16] MEDS: PANTOPRAZOLE 40 MG INJ IVP SCH ×2 (09:00→21:00)
[2022-09-16] MEDS ORDERED: PIPERACIL/TAZO 3.375 GM VIAL IV ONE (09:05)
[2022-09-16] MEDS ORDERED: NA CHLORIDE 0.9% 0 ML ONE (09:06)
[2022-09-16] MEDS: BUPIVACAINE 0.5% PF 10 ML VIAL ONE ×2 (09:18→10:51)
[2022-09-16] MEDS ORDERED: dexAMETHasone 10 MG/ML VIAL ONE (09:54)
[2022-09-16] MEDS ORDERED: ONDANSETRON 4 MG/2 ML VIAL ONE (09:54)
[2022-09-16] MEDS ORDERED: LIDOCAINE 2% MPF 5 ML VIAL ONE (09:54)
[2022-09-16] MEDS ORDERED: KETOROLAC 30 MG/ML INJ ONE (09:54)
[2022-09-16] MEDS ORDERED: propofoL 200 MG/20 ML VIAL IV ONE (09:54)
[2022-09-16] MEDS ORDERED: ROCURONIUM 50 MG/5 ML VIAL IV ONE (09:54)
[2022-09-16] MEDS ORDERED: MIDAZOLAM HCL 2 MG/2 ML INJ ONE (09:54)
[2022-09-16] MEDS ORDERED: FENTANYL CITR 100 MCG/2 ML ONE (09:54)
[2022-09-16] MEDS ORDERED: NA CHLORIDE 0.9% 1,000 ML ONE (10:06)
[2022-09-16] MEDS ORDERED: CIPROFLOXACIN 400mg IV 0 MG/0 ML BAG IV ONE (10:13)
[2022-09-16] MEDS ORDERED: GLYCOPYRROLATE 0.2 MG/ML SYR ONE (10:56)
[2022-09-16] MEDS ORDERED: NEOSTIGMINE 1 MG/ML -10 ML VIAL ONE (10:56)
[2022-09-16] MEDS: FENTANYL CITR 100 MCG/2 ML ONE ×2 (11:10→11:20)
[2022-09-16] MEDS ORDERED: HYDROMORPHONE HCL 1 MG/ML INJ ONE (11:29)
--- NOTE | 2022-09-16 12:11 | OP ---
Date of Procedure: 09/16/2022 Surgeon: Israel Kaufman MD Bridge Manager: PATRICA Hagan. Preoperative Diagnoses: Acute cholecystitis, pancreatitis, biliary dyskinesia, right upper quadrant intractable abdominal pain. Postoperative Diagnoses: Acute cholecystitis, pancreatitis, biliary dyskinesia, right upper quadrant intractable abdominal pain. Procedure: Laparoscopic cholecystectomy. Estimated Blood Loss: Less than 10 mL. Specimen: Gallbladder. Finding: As above. Anesthesia: General plus local. Complications: None. Indication: This is the case of a 62-year-old patient, who comes to us with multiple problems ranged from having a symptomatic cholelithiasis in the past to acute cholecystitis, biliary dyskinesia, banegas creatitis. Please see my consult for details. The benefits, alternatives, and risks of laparoscopic possible open cholecystectomy fully explained to the patient, which include, but not limited to infe ction, bleeding, damage to adjacent structures, anesthesia complication, choledocholithiasis, bile le ak, pancreatitis, DC, and even . She also understands this may not relieve any symptoms. She m ight need more than one surgical intervention. She understood, signed a consent. Over the weekend, she was trying to get some diet, but she could not tolerate the diet. So, the gallbladder then was r equested to be done during this admission. I discussed that with the primary doctor and scheduled he r for surgery. She wants surgery done during this admission now. Procedure In Detail: The patient was brought to the operating room, placed in supine position. Anes thesia was done without complication. Abdominal area was prepped and draped in the usual sterile fas hion. Marcaine 0.5% was injected for local anesthetic followed by sharp incision of the skin in the infraumbilical region. The incision was carried down to fascia, which was opened under direct vision . Peritoneum was encountered, opened under direct vision. Vicryl #1 placed inside the fascia. Junito on trocar was carefully introduced. Pneumoperitoneum was obtained. I placed 3 more trocars, 5 mm ea ch one of them in epigastric upper quadrant area under direct visualization. This allowed me to put a grasper in the fundus of the gallbladder, another grasper in the infundibulum retracting the gallbl adder in the inferolateral fashion, exposing the triangle of Calot, and obtaining critical view. Cys tic duct and cystic artery were clearly isolated, free circumferentially and a connection between tho se and the gallbladder were clearly identified. I proceeded to ligate those by using at least 3 clip s proximal, 1 clip distal, ligation in the middle. Same was done with the cystic artery. No bile le ak, no bleeding. The gallbladder was removed from the liver using Bovie cauterizer and removed from the abdominal cavity using EndoCatch through the umbilical incision. The area was inspected once aga in. No bile leak, no bleeding. At that moment, I proceeded to remove the trocars under direct visio n. Deflated pneumoperitoneum, closed the fascia with #1 Vicryl. Irrigated subcutaneous tissue, clos ed that with 3-0 chromic and then the skin in a subcuticular fashion with 3-0 chromic and Steri-Strip s on top. Sponge count, instrument counts correct. The patient tolerated the procedure well. [facility]. KOBY/IRVIN Voice ID: [id number] Report ID: [id number]
[2022-09-16 13:48] LABS: BUN Blood Urea Nitrogen < 3 mg/dL (7-18)
[2022-09-16] MEDS ORDERED: CIPROFLOXACIN 400mg IV 400 MG/200 ML BAG IV ONE (13:51)
[2022-09-16] MEDS: ENOXAPARIN 40 MG/0.4 ML SQ SCH (16:20)
[2022-09-16] MEDS: MORPHINE 2 MG/ML SYR IV PRN ×2 (16:45→21:00)
--- NOTE | 2022-09-16 18:54 | P.PN ---
Subjective Date of Service: 09/16/22 Chief Complaint: abdominal pain No acute events overnight. She reports that her abdominal pain is well- controlled. She has been NPO past midnight in anticipation for laparoscopic cholecystectomy today. She denies any chest pain, palpitations, or shortness of breath. Review of Systems 10-point ROS is otherwise unremarkable Gastrointestinal: Nausea, Abdominal Pain Physical Examination - Vital Signs Temperature: 97 F Blood Pressure: 122/68 Pulse: 60 Respirations: 20 Pulse Ox (%): 96 - Physical Exam General: Alert, In no apparent distress, Oriented x3 HEENT: Atraumatic, Mucous membr. moist/pink, Sclerae nonicteric Neck: JVD not distended Respiratory: Clear to auscultation bilaterally, Normal air movement Cardiovascular: No edema, Regular rate/rhythm, Normal S1 S2, No gallops, No rubs, No murmurs Gastrointestinal: Normal bowel sounds, Non-distended, No rebound, No guarding, Tenderness (RUQ) Musculoskeletal: No clubbing Integumentary: No rashes Neurological: Normal speech, Normal affect Assessment And Plan - Plan # Acute Pancreatitis - suspect Gallstone-Induced - Evaluation thus far: - US abdomen = "negative for cholelithiasis or acute cholecystitis." - CT abdomen/pelvis = "subtle peripancreatic edema suspect concerning for acute pancreatitis. No complicating features." - MRCP = "markedly distended gallbladder, without evidence of cholelithiasis or inflammatory changes on this MRI. Fatty replaced pancreas. Mildly prominent distal main pancreatic duct, of uncertain significance. Please correlate with bilirubin and pancreatic enzyme profile. No other appreciable acute abnormality in the abdomen." - HIDA scan = "patient cystic duct and patent sphincter of Oddi. No delay in visualization of the gallbladder, biliary tree, or duodenum. Ejection fraction is low at 13% (normal greater than 35%). Subjective patient pain assessment as detailed above." - Management plan: - General Surgery consulted - planning for laparoscopic cholecystectomy today - Continue ciprofloxacin for now - NPO - diet per Surgery - PRN pain control # Hypothyroidism - Continue home levothyroxine # Hypertension # Hyperlipidemia - Reconcile home medications once verified Wilton Chand M.D.
[2022-09-16] MEDS: ONDANSETRON 4 MG (ODT) TAB PO PRN (21:00)
[2022-09-16] MEDS: ZOLPIDEM TARTRATE 5 MG TABLET PO PRN (21:00)
[2022-09-16] MEDS: CIPROFLOXACIN 400mg IV 400 MG/200 ML BAG IV SCH (22:57)
[2022-09-17] MEDS: MORPHINE 2 MG/ML SYR IV PRN ×2 (02:41→06:56)
[2022-09-17 03:31] LABS: Magnesium 1.7 mg/dL (1.6-2.4); Phosphorus 2.2 mg/dL (2.5-4.9); Potassium 3.8 mEq/L (3.5-5.1)
[2022-09-17 03:33] VITALS: O2SAT 94
[2022-09-17] MEDS: LEVOTHYROXINE SOD 0.1 MG TAB PO SCH (05:58)
[2022-09-17] MEDS ORDERED: POTASS/SODIUM PHOSPHATE 1 PKT POWD.PACK PO SCH (07:00)
[2022-09-17] MEDS ORDERED: MAGNESIUM SULFATE 1 gm IVPB 1 GM/100 ML BAG IV ONE (08:00)
[2022-09-17 08:38] VITALS: BP 106/54; TEMP 97.3
[2022-09-17] MEDS: POTASS/SODIUM PHOSPHATE 1 PKT POWD.PACK PO SCH ×2 (09:00→10:31)
[2022-09-17] MEDS: CIPROFLOXACIN 400mg IV 400 MG/200 ML BAG IV SCH (10:30)
[2022-09-17] MEDS: PANTOPRAZOLE 40 MG INJ IVP SCH (10:30)
--- NOTE | 2022-09-17 12:37 | P.DS ---
Admission Date: 09/13/22 Discharge Date: 09/17/22 Disposition: ROUTINE DISCHARGE Discharge Condition: GOOD Reason for Admission: abdominal pain Consultations: 1. General Surgery Procedures: - 09/16/2022 - Laparoscopic Cholecystecomy Hospital Course: DIAGNOSES: # Acute Pancreatitis - suspect Biliary Dyskinesia # Hypothyroidism # Hypertension # Hyperlipidemia # Mild Circumferential Thickened Distal Esophagus # Right Renal Cyst HOSPITAL COURSE: Ms. Rosaura Cohen is a 62 year old female with a past medical history significant for hypothyroidism, hypertension, and hyperlipidemia who was admitted to the [facility] on 09/11/2022 for abdominal pain. She was admitted to the Medicine service. Upon further evaluation, her abdominal ultrasound revealed, "negative for cholelithiasis or acute cholecystitis." Her CT abdomen/pelvis revealed, "subtle peripancreatic edema suspect concerning for acute pancreatitis. No complicating features." Her MRCP revealed, "markedly distended gallbladder, without evidence of cholelithiasis or inflammatory changes on this MRI. Fatty replaced pancreas. Mildly prominent distal main pancreatic duct, of uncertain significance. Please correlate with bilirubin and pancreatic enzyme profile. No other appreciable acute abnormality in the abdomen." Her HIDA scan revealed, "patient cystic duct and patent sphincter of Oddi. No delay in visualization of the gallbladder, biliary tree, or duodenum. Ejection fraction is low at 13% (normal greater than 35%). Subjective patient pa in assessment as detailed above." She was diagnosed with acute pancreatitis, with concern for biliary dyskinesia. She was placed NPO and started on PRN pain medications. General Surgery was consulted and she was evaluated by Dr. Kaufman. On 09/16/2022, she underwent a laprascopic cholecystectomy. She tolerated the procedure well and her diet was gradually advanced. This morning, she was able to tolerate a GI soft diet. Dr. Kaufman has cleared her for discharge with outpatient follow-up. On 09/17/2022, she was seen on rounds and deemed medically stable for discharge. She was discharged with instructions to schedule follow-up appointments with her PCP (BOBO Velasquez), with Gastroenterology (Dr. Mauricio), and with General Surgery (Dr. Kaufman). She was provided prescriptions for hydrocodone-acetaminophen, ciprofloxacin, and metronidazole. She was given the opportunity to ask questions and reported no further questions. Furthermore, all questions were answered to the best of my ability. Prior to the controlled-substance prescription, a PDMP review was conducted. Over the last 2 years, she has received 3 controlled prescriptions, from 3 providers, to 3 pharmacies. Her opioid overdose risk score is 250. A copy of this discharge summary will be sent to the above providers to facilitate continuity of care. Today, I personally spent 25 minutes on her case of which greater than 50% of t he time was spent in patient education, counseling, and coordination of care as described above. - Physical Exam General: Alert, In no apparent distress, Oriented x3 HEENT: Atraumatic, Mucous membr. moist/pink, Sclerae nonicteric Respiratory: Clear to auscultation bilaterally, Normal air movement Cardiovascular: No edema, Regular rate/rhythm, No murmurs Gastrointestinal: Normal bowel sounds, Non-distended, No rebound, No guarding, Minimal tenderness near incision site. Site is covered in clean surgical dressing Musculoskeletal: No clubbing Integumentary: No rashes Neurological: Normal speech, Normal affect Vital Signs/Physical Exam: Temp Pulse Resp BP Pulse Ox 97.3 F 53 16 106/54 L 98 09/17/22 08:00 09/17/22 08:00 09/17/22 08:00 09/17/22 08:00 09/17/22 08:00 Laboratory Data at Discharge: WBC 8.10 thou/uL (4.3-10.9) 09/13/22 06:11 Hgb 11.8 g/dL (12.0-15.0) L 09/13/22 06:11 Hct 36.5 % (36.0-45.0) 09/13/22 06:11 Plt Count 292 thou/uL (152-406) 09/13/22 06:11 PT 12.5 SECONDS (9.2-12.8) 09/12/22 02:49 INR 1.05 09/12/22 02:49 Sodium 139 mEq/L (136-145) 09/17/22 02:36 Potassium 3.8 mEq/L (3.5-5.1) 09/17/22 02:36 BUN 5 mg/dL (7-18) L 09/17/22 02:36 Creatinine 0.73 mg/dL (0.55-1.02) 09/17/22 02:36 Glucose 126 mg/dL (74-106) H 09/17/22 02:36 Phosphorus 2.2 mg/dL (2.5-4.9) L 09/17/22 02:36 Magnesium 1.7 mg/dL (1.6-2.4) 09/17/22 02:36 Total Bilirubin 0.5 mg/dL (0.2-1.0) 09/13/22 06:11 AST 11 U/L (15-37) L 09/13/22 06:11 ALT 20 U/L (13-56) 09/13/22 06:11 Alkaline Phosphatase 112 U/L (45-117) 09/13/22 06:11 Lipase 22 U/L (13-75) 09/13/22 06:11 Home Medications: Albuterol Inhaler [Ventolin Inhaler*] 2 puff IH Q6H PRN 09/12/22 Atorvastatin Calcium [Lipitor*] 20 mg PO DAILY 09/12/22 Benzonatate [Tessalon Perle*] 100 mg PO TID PRN 09/12/22 Dicyclomine [Bentyl*] 20 mg PO QID 09/12/22 Levothyroxine Sodium 100 mcg PO DAILY 09/12/22 Lisinopril [Zestril] 20 mg PO DAILY 09/12/22 Meloxicam [Mobic] 15 mg PO DAILY 09/12/22 Ondansetron [Zofran (Odt)*] 4 mg PO Q12HP PRN 09/12/22 Ciprofloxacin HCl 500 mg PO BID 5 Days #10 tab 09/17/22 Hydrocodone/Acetaminophen [Hydrocodon-Acetaminophen 5-325] 1 tab PO Q6H PRN 3 Days #12 tab 09/17/22 metroNIDAZOLE [Metronidazole] 500 mg PO Q8H 5 Days #15 tab 09/17/22 New Medications: Ciprofloxacin HCl 500 mg PO BID 5 Days #10 tab Hydrocodone/Acetaminophen [Hydrocodon-Acetaminophen 5-325] 1 tab PO Q6H PRN 3 Days #12 tab PRN Reason: Pain Scale 5-7 (Moderate) metroNIDAZOLE [Metronidazole] 500 mg PO Q8H 5 Days #15 tab Physician Discharge Instructions: 1. Please call and schedule a follow-up appointment with your PCP (BOBO Velasquez) in 3-5 days - Your CT showed a cyst on your kidney. Please discuss this further with your PCP - There were a few small abnormalities on your blood tests - a mildly low hemoglobin and a minimally elevated eosinophil count. Please have your PCP repeat these tests at your next appointment. 2. Please call and schedule a follow-up appointment with General Surgery (Dr. Kaufman) in 5-7 days 3. Please call and schedule a follow-up appointment with Gastroenterology (Dr. Mauricio) in 5-7 days - Your CT showed some thickening in your esophagus. Although this could be due to acid reflux, esophageal cancer needs to be excluded. Please discuss with Dr. Mauricio. Per Dr. Kaufman: Keep surgical area dry for 24h then may remove outer dressing and shower. Diet: AHA Activity: No lifting more than 10 lbs Followup: Israel Kaufman MD [ACTIVE - CAN ADMIT] - 1 Week Nery Velasquez NP [ALLIED HEALTH PROFESSIONAL] - Dar Mauricio MD [ASSOCIATE-ACTIVE - CAN ADMIT] - Time spent managing pt's care (in minutes): 25
== END 2022-09-17 14:00 | disposition home or self-care (01) | DRG 417 ==
LOC: ER 16:26 → ERHOLD 19:53 → 2ND 21:31 → OBSVTOIN 09-13 12:23
PROVIDERS: ADMIT Hospitalist; ATTEND Internal Medicine
PROC: 0FT44ZZ Resection of Gallbladder, Percutaneous Endoscopic Approach (ICD-10-PCS; principal; 2022-09-16 12:45)
DX: K81.0 Acute cholecystitis (principal); K85.10 Biliary acute pancreatitis without necrosis or infection; K21.9 Gastro-esophageal reflux disease without esophagitis; I10 Essential (primary) hypertension; E03.9 Hypothyroidism, unspecified; K59.09 Other constipation; E78.5 Hyperlipidemia, unspecified; N28.1 Cyst of kidney, acquired; K22.89 Other specified disease of esophagus; J45.909 Unspecified asthma, uncomplicated; D72.829 Elevated white blood cell count, unspecified; Z88.0 Allergy status to penicillin; Z90.710 Acquired absence of both cervix and uterus; Z87.891 Personal history of nicotine dependence; Z79.890 Hormone replacement therapy
CPT/HCPCS: 36415; 74177; 74181; 76705; 78227; 80048; 80053; 81001; 81003; 83690; 83735; 84100; 84484; 85025; 85610; 88304; 93005; 94010; 96361; 96365; 96375; 99285; A9537; C9113; G0378; J0744; J1100; J1170; J1650; J2001; J2250; J2270; J2405; J2543; J2704; J2710; J2805; J3010; J3360; J3475; J3480; J7030; Q0162; Q9967